=== PATIENT | female | born 1950 | race Caucasian/White ===

== ENCOUNTER → 2017-07-19 | Outpatient (CLI) | payer OTHER ==
[~2017-07-19] MED LIST: CHOL400C7 PO; CYCL10TA6 PO; ERGO500037 PO; IBUP1CAP9 PO; LOSA50TA6 PO; OXYC7.5T78 PO; SIMV20TA2 PO; SIMV40TA4 PO; TURM1CAP4 PO
[2017-07-19 12:47] LABS: ESTIMATED AVERAGE GLUCOSE 105 mg/dl; HA1C FLAG Normal (Normal)
[2017-07-19 12:53] LABS: CHOLESTEROL/HDL RATIO 3.5
== END | disposition home or self-care (01) ==
LOC: C.LABBFT 07:47
PROVIDERS: ATTEND Internal Medicine
DX: I12.9 Hypertensive chronic kidney disease with stage 1 through stage 4 chronic kidney disease, or unspecified chronic kidney disease (principal); N18.9 Chronic kidney disease, unspecified; E78.00 Pure hypercholesterolemia, unspecified; R73.9 Hyperglycemia, unspecified; E55.9 Vitamin D deficiency, unspecified

== ENCOUNTER → 2017-08-19 | Day surgery (SDC) | payer OTHER ==
[2017-08-07 15:42] VITALS: Ht 165.1 cm; Wt 125.0 kg
[~2017-08-19] VITALS: Ht 165.1 cm; Wt 125.0 kg
[~2017-08-19] MED LIST changes: -CHOL400C7 PO; -CYCL10TA6 PO; -IBUP1CAP9 PO; +LIDOCAINE HCL 2% 2 ML VIAL (20MG/ML) ONE; -OXYC7.5T78 PO; +PROPOFOL IV EMULSION 10 MG/ML 20 ML VIAL IV ONE; -SIMV20TA2 PO
[2017-08-19 14:31] VITALS: TEMP 36.8
--- NOTE | 2017-08-19 14:34 | Endo History and Physical ---
History & Physical Date of Service: Aug 19, 2017. Chief Complaint: Screening Referring Physician: Len Biggs History of Present Illness 67 yo CF who presents for screening colonoscopy. Past Medical History High Cholesterol, Hypertension, Kidney Disease Past Surgical History Hx Cardiac Surgery: No Hx Internal Defibrillator: No Hx Pacemaker: No Hx Abdominal Surgery: Yes (OMERO BSO, X2, ADRIANO) Hx of Implantable Prosthesis: No Hx Post-Op Nausea and Vomiting: No Hx Cancer Surgery: No Hx Thoracic Surgery: No Hx Orthopedic: No Hx Urinary Tract Surgery: Yes (LITHOTRIPSY AND URETAL STENT) Family History Colon CA Social History Smoking Status: Never Smoker Hx Substance Use: No Hx Alcohol Use: No Allergies Coded Allergies: No Known Allergies (Verified , 08/07/17) Current Medications Reported Home Medications Medications Dose Route/Sig Max Daily Dose Days Date Category Turmeric (Turmeric (Curcuma Longa)) 500 Mg Cap 1 Cap PO DAILY 08/07/17 Reported Vitamin D 95785 Unit (Ergocalciferol) 50,000 Unit Cap 50,000 Unit PO WK 08/07/17 Reported Zocor (Simvastatin) 40 Mg Tab 40 Mg PO HS 08/07/17 Reported Cozaar (Losartan Potassium) 50 Mg Tab 50 Mg PO HS 08/01/13 Reported Vital Signs Weight (Kilograms): 125 Height (Feet): 5 Height (Inches): 5 Physical Exam General Appearance: WD/WN, no apparent distress Respiratory/Chest: Auscultation: breath sounds normal Cardiovascular: Heart Auscultation: RRR Abdomen: Bowel Sounds: normal Inspection & Palpation: soft, non-distended, no tenderness, guarding & rebound Assessment and Plan Assessment: 67 yo CF who presents for screening colonoscopy. Plan: Proceed with colonoscopy.
--- NOTE | 2017-08-19 15:17 | Discharge Instructions ---
Endoscopy Patient Instructions Date / Procedure(s) Performed Aug 19, 2017. Colonoscopy Allergy Information Coded Allergies: No Known Allergies (Verified , 08/07/17) Discharge Date / Findings Aug 19, 2017. Internal hemorrhoids Medication Instructions OK to resume all medications today as prescribed Reported Home Medications Medications Dose Route/Sig Max Daily Dose Days Date Category Turmeric (Turmeric (Curcuma Longa)) 500 Mg Cap 1 Cap PO DAILY 08/07/17 Reported Vitamin D 64203 Unit (Ergocalciferol) 50,000 Unit Cap 50,000 Unit PO WK 08/07/17 Reported Zocor (Simvastatin) 40 Mg Tab 40 Mg PO HS 08/07/17 Reported Cozaar (Losartan Potassium) 50 Mg Tab 50 Mg PO HS 08/01/13 Reported Provider Instructions Activity Restrictions - No exercising or heavy lifting for 24 hours. - Do not drink alcohol the day of the procedure. - Do not drive a car or operate machinery until the day after the procedure. - Do not make any important decisions or sign important papers in 24 hours after the procedure. Following Day: - Return to full activity which may include returning to work/school. Diet Start your diet with liquids and light foods (jello, soup, juice, toast). Then eat your usual diet if not nauseated. Treatment For Common After Affects For mild abdominal pain, bloating, or excessive gas: - Rest - Eat lightly - Lie on right side Follow-Up Information Follow-up with Len Biggs as scheduled Anesthesia Information What You Should Know You have had a procedure that required some medicine to reduce anxiety and discomfort. This treatment is called moderate sedation. After receiving the treatment, you may be sleepy, but you will be able to breathe on your own. The effects of the treatment may last for several hours. Follow these instructions along with Activity/Diet recommendations noted above: * Do NOT do anything where dizziness or clumsiness would be dangerous. * Rest quietly at home today, then you can be up and about tomorrow. * Have a responsible person stay with you the rest of today. * You may have had an I.V. today. If so, you may take the dressing off later today. Recommendations Call your doctor if: * Trouble breathing * Continuous vomiting for more than 24 hours * Temperature above 101 degrees * Severe abdominal pain or bloating * Pain not relieved by pain medicine ordered * There is increased drainage or redness from any incision * A large amount of rectal bleeding greater than 2-3 tablespoons. (If you had a polyp/s removed or have hemorrhoids, a small amount of blood - from the rectum is to be expected.) * You have any unanswered questions or concerns. IN THE EVENT OF A SERIOUS EMERGENCY, GO TO THE NEAREST EMERGENCY ROOM Your discharge instructions were prepared by provider Zen Carmichael. Patient Instructions Signature Page Elizabet Hankins Patient (or Guardian) Signature/Date: I have read and understand the instructions given to me by my caregivers. Caregiver/RN/Doctor Signature/Date: The above-named patient and/or guardian has received patient instructions on this date. + Original Patient Signature Page (only) stays with chart. Please make copy for patient.
--- NOTE | 2017-08-19 15:22 | GI REPORT ---
Procedure Date: 08/19/2017 2:42 PM Procedure: Colonoscopy Indications: Screening for colorectal malignant neoplasm Medicines: Monitored Anesthesia Care Complications: No immediate complications. Estimated Blood Loss: Estimated blood loss: none. Procedure: Pre-Anesthesia Assessment: - Prior to the procedure, a History and Physical was performed, and patient medications and allergies were reviewed. The patient's tolerance of previous anesthesia was also reviewed. The risks and benefits of the procedure and the sedation options and risks were discussed with the patient. All questions were answered, and informed consent was obtained. Prior Anticoagulants: The patient has taken no previous anticoagulant or antiplatelet agents. ASA Grade Assessment: III - A patient with severe systemic disease. After reviewing the risks and benefits, the patient was deemed in satisfactory condition to undergo the procedure. After I obtained informed consent, the scope was passed under direct vision. Throughout the procedure, the patient's blood pressure, pulse, and oxygen saturations were monitored continuously. The Scope was introduced through the anus and advanced to the cecum, identified by appendiceal orifice and ileocecal valve. The colonoscopy was performed without difficulty. The patient tolerated the procedure well. The quality of the bowel preparation was good. The ileocecal valve, appendiceal orifice, and rectum were photographed. Findings: Non-bleeding internal hemorrhoids were found during retroflexion. The hemorrhoids were small. The exam was otherwise without abnormality. Impression: - Non-bleeding internal hemorrhoids. - The examination was otherwise normal. - No specimens collected. Recommendation: - Resume previous diet. - Continue present medications. - Repeat colonoscopy in 10 years for surveillance. - Return to primary care physician as previously scheduled. Zen Carmichael, DO 08/19/2017 3:21:48 PM This report has been signed electronically. Note Initiated On: 08/19/2017 2:42 PM I attest to the content of the Intraoperative Record and orders documented therein, exceptions below
[2017-08-19 15:42] VITALS: BP 129/76; PULSE 63; O2SAT 96
--- NOTE | 2017-08-19 15:59 | Anesthesiology Progress Note ---
Anesthesia Post Op Note Date & Time Aug 19, 2017 at 15:59 Vital Signs Pain Intensity: 0 Vital Signs Past 12 Hours Date Time Temp Pulse Resp B/P (MAP) Pulse Ox O2 Delivery O2 Flow Rate FiO2 08/19/17 15:42 63 16 129/76 (93) 96 Room Air 08/19/17 15:27 73 16 119/81 (94) 97 Room Air 08/19/17 15:12 81 16 123/65 (84) 92 Room Air 08/19/17 14:31 36.8 90 22 160/110 (127) 95 Room Air Notes Mental Status: alert / awake / arousable, participated in evaluation Pt Amnestic to Procedure: Yes Nausea / Vomiting: adequately controlled Pain: adequately controlled Airway Patency, RR, SpO2: stable & adequate BP & HR: stable & adequate Hydration State: stable & adequate Anesthetic Complications: no major complications apparent
== END | disposition home or self-care (01) ==
LOC: C.GI 14:11
PROVIDERS: ATTEND Internal Medicine
DX: Z12.11 Encounter for screening for malignant neoplasm of colon (principal); K64.8 Other hemorrhoids; E78.00 Pure hypercholesterolemia, unspecified; I10 Essential (primary) hypertension; N18.9 Chronic kidney disease, unspecified; E78.5 Hyperlipidemia, unspecified; M19.90 Unspecified osteoarthritis, unspecified site; Z87.442 Personal history of urinary calculi; Z90.710 Acquired absence of both cervix and uterus; E66.01 Morbid (severe) obesity due to excess calories; Z80.0 Family history of malignant neoplasm of digestive organs; Z90.49 Acquired absence of other specified parts of digestive tract

== ENCOUNTER 2022-05-16 10:00 | Observation (INO) ==
--- NOTE | 2022-04-16 14:39 | PAT Medication Instructions ---
Medication Instructions Date of Service April 16, 2022 Home Medications Medication Instructions Recorded simvastatin 40 mg tablet 40 mg PO HS #90 tab 09/05/21 losartan 50 mg tablet 50 mg PO DAILY #90 tab 12/12/21 cholecalciferol (vitamin D3) 50 mcg (2,000 unit) capsule 4,000 units PO DAILY simvastatin 40 mg tablet 40 mg PO HS losartan 50 mg tablet 50 mg PO DAILY DO NOT take the morning of surgery cholecalciferol (vitamin D3) 50 mcg (2,000 unit) capsule 4,000 units PO DAILY losartan 50 mg tablet 50 mg PO DAILY Take evening before surgery simvastatin 40 mg tablet 40 mg PO HS Other Notes If you have any questions please call us at [phone] or [phone] or [phone] or [phone]
--- NOTE | 2022-04-20 08:34 | Anesthesiology Consultation ---
Date of Service April 20, 2022 Assessment & Plan (1) Encounter for pre-operative examination: COVID screening: Per assessment on 04/20: No known COVID-19 positive contacts or current COVID-19 related symptoms. Travel screen negative. Patient vaccinated. Surgeon arranging preop COVID testing (scheduled 05/11 JAY Doyle d/t the ). Awaiting results. Chart Review Chart Review: Acceptable Risk for Surgery and Patient seen in Pre Admission Testing Teaching & Discussion Pre-Anesthesia Teaching/Discussion Notes: Instructed NPO after midnight before surgery,except medications with 15 cc of water. Medication instructions provided according to the PAT guidelines. History Surgery Operation Date: 05/16/22 09:35 Proposed Procedures p Left Total Knee Arthroplasty - Joseph Degroot MD Height/Weight Height: 5 ft 5 in Weight: 131.5 kg Allergies Allergy/AdvReac Type Severity Reaction Status Date / Time No Known Allergies Allergy Unknown Verified 04/16/22 12:30 Medications Home Medications Medication Instructions Recorded Confirmed Last Taken cholecalciferol (vitamin D3) 50 4,000 units PO DAILY cap 06/12/19 04/16/22 Unknown mcg (2,000 unit) capsule simvastatin 40 mg tablet 40 mg PO HS #90 tab 09/05/21 04/16/22 Unknown losartan 50 mg tablet 50 mg PO DAILY #90 tab 12/12/21 04/16/22 Unknown Past Medical History Medical History History of kidney stones x2 Hypercholesterolemia Hypertension Lumbar disc disease Morbid obesity Sleep apnea No device Exercise / Class Metabolic Activity III < 4 Walking/Shop/Light housework (Cane PRN (no CP, no SOB with daily activities)) Past Family History Family History Unknown Hypertension Breast cancer Heart disease Aunt Breast cancer Mother Heart disease Stroke syndrome Colorectal cancer Father Heart disease Denies family history of Ovarian cancer Prostate cancer Past Surgical History Surgical History History of section History of cystoscopy With insertion of urethral stent History of total abdominal hysterectomy and bilateral salpingo-oophorectomy Hx of bilateral breast reduction surgery Nausea and vomiting after administration of anesthetic agent Pt reports scopolamine patch was very effective S/P cholecystectomy S/P colonoscopy Past Anesthesia History No Hx of Anesthesia Complications (except PONV) and No Family Hx of Anesthesia Complications History of PONV No Hx of Motion Sickness and History of PONV (Pt reports scopolamine patch was very effective ) Social History Smoking Status: Never smoker Do You Dip or Chew Tobacco: No Hx Alcohol Use: No Hx Substance Use: No substance use type: does not use Review of Systems Patient denies chest pain, shortness of breath, fever, chills, cough, wheezing, palpitations. Physical Exam Vital Signs VITALS BP 119/78 P 72 TEMP 98.2 SP02 95%RA RESP 16 PHYSICAL Full cervical extension range of motion. Full TMJ range of motion. TMD 3 finger breaths Mallampati Score 2 Dentition: intact Lungs: clear throughout to auscultation Cardiac: regular rate and rhythm, no murmurs noted Spine: normal Carotid arteries: negative bruit Extremities: no edema Thick neck Lab Results Anesthesia Preop Results Results Anesthesia Widget: WBC 5.45 K/uL (4.8-10.8) 04/20/22 Hgb 16.8 g/dL (12.0-16.0) H 04/20/22 Hct 49.7 % (37-47) H 04/20/22 Plt 221 K/uL (130-400) 04/20/22 Na 141 mmol/L (136-145) 04/20/22 K 4.9 mmol/L (3.5-5.1) 04/20/22 Cl 106 mmol/L (98-107) 04/20/22 CO2 31 mmol/L (21-32) 04/20/22 BUN 20 mg/dl (6-23) 04/20/22 Creat 0.76 mg/dl (0.6-1.2) 04/20/22 Glucose Level 106 mg/dl (70-99(Fasting)) H 04/20/22 PT 9.9 Seconds (9.0-12.0) 04/20/22 PTT 24.8 Seconds (21.0-31.0) 04/20/22 INR 0.9 (0.9-1.1) 04/20/22 HA1c 5.5 % (4.5-5.6) 04/20/22 Urine Color Yellow 04/20/22 Urine Appearance Clear (Clear) 04/20/22 Urine pH 5.0 (4.5-7.5) 04/20/22 Urine Specific [place] 1.019 (1.000-1.030) 04/20/22 Urine Protein Negative (Negative) 04/20/22 Urine Glucose (UA) Negative (Negative) 04/20/22 Urine Ketones Negative (Negative) 04/20/22 Urine Blood Trace (Negative) H 04/20/22 Urine Nitrite Negative (Negative) 04/20/22 Urine Bilirubin Negative (Negative) 04/20/22 Urine Urobilinogen Negative (Negative) 04/20/22 Urine Leukocyte Esterase 1+ (Negative) H 04/20/22 Urine WBC (Auto) 5-10 /hpf (0-5) H 04/20/22 Urine RBC (Auto) 5-10 /hpf (0-4) H 04/20/22 Urine Hyaline Casts (Auto) 1-5 /lpf (0-5) 04/20/22 Urine Epithelial Cells (Auto) >30 /lpf (0-5) H 04/20/22 Urine Bacteria (Auto) Negative (Negative) 04/20/22 Blood Type O Positive 04/20/22 Antibody Screen NEGATIVE 04/20/22 Testing Electrocardiogram Date: 12/13/21 Sinus rhythm at 74 bpm. Low voltage QRS in precordial leads. Chest X-Ray Date: 04/20/22 FINDINGS: PA and lateral chest radiographs are compared to study dated 08/03/2013 and correlated with chest CT dated 12/28/2009. The heart is top normal for projection noting atherosclerotic calcification of the thoracic aorta. The lungs and pleural spaces are clear. There is no pneumothorax. The skeletal structures are osteopenic. The bony thorax appears intact. Degenerative change i s noted in the thoracic spine. Cholecystectomy clips are seen in the right upper quadrant. IMPRESSION: No active disease in the chest. Stress Test Date: 01/09/19 No evidence of inducible ischemia at workload achieved. Poor exercise tolerance. No significant valvular disease. 4.8 METS. 90% MPHR.
--- NOTE | 2022-05-15 19:00 | History & Physical Report ---
Date of Service May 15, 2022 Assessment & Plan (1) Primary osteoarthritis of left knee: Plan: Treatment options discussed with the patient. She has failed conservative measures and would like to proceed with knee replacement. Risks, benefits and alternatives to surgery including but not limited to infection, DVT, pain, stiffness, need for revision surgery, damage to blood vessels, damage to nerves, PE, , were discussed with the patient and they wish to proceed. Plan on left total knee arthroplasty at [facility] on 05/16/[address] Degroot. Plan on Xarelto post op for DVT prophylaxis. Outpatient PT vs HHPT. All questions answered. F/u post op. History of Present Illness Chief Complaint: Left knee pain Primary Care Provider: Len Biggs MD 72 yo female with PMHx significant for HTN, high cholesterol, morbid obesity, FABIANA who presents with ongoing left knee pain. Pain interfering with her daily activities. She has failed conservative measures. she would like to proceed with knee replacement. Patient denies headaches, sweats, fevers, chills, double vision, blurred vision, cough, sore throat, dysphagia, chest pain, sob, wheezing, n/v/d/c, numbness, tingling, fatigue, urinary symptoms, mood disorders. ROS positive for left knee pain and stiffness. Allergies Allergy/AdvReac Type Severity Reaction Status Date / Time No Known Allergies Allergy Unknown Verified 04/23/22 10:08 Home Medications Medication Instructions Recorded Confirmed Type cholecalciferol (vitamin D3) 50 4,000 units PO DAILY cap 06/12/19 04/23/22 History mcg (2,000 unit) capsule simvastatin 40 mg tablet 40 mg PO HS #90 tab 09/05/21 04/23/22 Rx losartan 50 mg tablet 50 mg PO DAILY #90 tab 12/12/21 04/23/22 Rx lorazepam 1 mg tablet 1 mg PO ONCE PRN tab 04/23/22 04/23/22 History Past Med/Surg History Medical History History of kidney stones x2 Hypercholesterolemia Hypertension Lumbar disc disease Morbid obesity Sleep apnea No device Surgical History History of section History of cystoscopy With insertion of urethral stent History of total abdominal hysterectomy and bilateral salpingo-oophorectomy Hx of bilateral breast reduction surgery Nausea and vomiting after administration of anesthetic agent Pt reports scopolamine patch was very effective S/P cholecystectomy S/P colonoscopy Family History Unknown Hypertension Breast cancer Heart disease Aunt Breast cancer Mother Heart disease Stroke syndrome Colorectal cancer Father Heart disease Denies family history of Ovarian cancer Prostate cancer Social History Smoking Status: Never smoker Second Hand Exposure: No; Hx Alcohol Use: No Hx Substance Use: No Preferred Language: Greenlandic Communication Ability: Effective Hearing Ability: Normal Senior Sales Operations Manager Required: No Beliefs That Will Affect Care: None marital status: Current Living Situation: Spouse current occupational status: employed Feels Safe at Home: Yes Dental Care, Regularly: Yes Physical Activity Frequency: Does not Exercise Seatbelt Use: always Assistive Devices: Cane and Walker Review of Systems All systems reviewed & are unremarkable except as noted in HPI & below Physical Exam Constitutional: well developed and well nourished; no acute distress Eyes: PERRL, conjunctivae normal, anicteric sclerae ENMT: external ear and nose normal, oropharynx normal Neck: trachea midline, no thyromegaly Respiratory: normal respiratory effort, lungs clear to auscultation Cardiovascular: RRR, no murmur, no edema Musculoskeletal: Left knee: Varus alignment. Tenderness medial joint line. Moderate crepitation. Painful ROM 0-125 degrees. Stable to valgus and varus stress. Skin: no rashes, warm and dry Neurologic: patellar DTR's 2+ bilat, sensation intact Psychiatric: A+Ox3, euthymic affect Results & Data ([facility]) Diagnostic Findings Left knee: Endstage osteoarthritis left knee bone on bone medial compartment and patellofemoral compartment. There is periarticular osteophyte formation.
[~2022-05-16 10:00] MED LIST changes: +ACETAMINOPHEN 500 MG TAB PO SCH; +BUPIVACAINE 0.5 % 5 MG/1 ML PF 10ML VIAL ONE; +CeleBREX 200 MG CAP PO SCH; -ERGO500037 PO; +FAMOTIDINE 20 MG TAB PO SCH; +GABAPENTIN 300 MG CAP PO SCH; -LIDOCAINE HCL 2% 2 ML VIAL (20MG/ML) ONE; -LOSA50TA6 PO; +LR 500ML BOLUS, THEN 15ML/HR IV SCH; +METOCLOPRAMIDE HCL 10 MG TABLET PO SCH; -PROPOFOL IV EMULSION 10 MG/ML 20 ML VIAL IV ONE; +ROPIVACAINE 0.5% 5 MG/ML 30 ML VIAL ONE; +ROPIVACAINE 0.5% HCL/PF 150 MG, BUPIVACAINE 0.75% MPF 20 ML, EPINEPHrine 30MG/30ML (OR ... INSTIL SCH; -SIMV40TA4 PO; +TRANEXAMIC ACID 1,000 MG **IV Intra-op IV SCH; +TRANEXAMIC ACID 1,000 MG **IV Pre-op IV SCH; -TURM1CAP4 PO; +dexAMETHasone 4 MG TAB PO SCH
[2022-05-16] MEDS ORDERED: fentaNYL citrate 100 MCG/2 ML VIAL IV PRN (13:01)
[2022-05-16] MEDS ORDERED: ATROPINE SULFATE 0.1 MG/ML 10ML SYR IV PRN (13:01)
[2022-05-16] MEDS ORDERED: ONDANSETRON INJ 2 MG/ML 2 ML VIAL IV PRN ×2 (13:01→17:49)
[2022-05-16] MEDS ORDERED: ePHEDrine sulfate 50 MG/ML AMP IV PRN (13:01)
[2022-05-16] MEDS ORDERED: fentaNYL citrate 100 MCG/2 ML VIAL ONE (13:25)
[2022-05-16] MEDS ORDERED: MIDAZOLAM HCL 1 MG/ML 2ML VIAL ONE (13:25)
--- NOTE | 2022-05-16 13:40 | History & Physical Bridge Note ---
Date of Service May 16, 2022 History & Physical Bridge Note I have examined the patient, reviewed the History & Physical and in the interval since the performance of the History & Physical I have noted the following changes of clinical significance: no changes noted
[2022-05-16] MEDS ORDERED: ONDANSETRON INJ 2 MG/ML 2 ML VIAL ONE (14:06)
[2022-05-16] MEDS ORDERED: PROPOFOL IV EMULSION 10 MG/ML 20 ML VIAL IV ONE (14:06)
[2022-05-16] MEDS ORDERED: LIDOCAINE 2% 2 ML VIAL/AMP(20MG/ML) INFIL ONE (14:06)
--- NOTE | 2022-05-16 15:40 | Operative Report ---
Post Operative Report Pre & Post Diagnosis Operation Date: 05/16/22 11:55 Pre-Op Diagnosis: Left Knee Osteoarthritis, morbid obesity BMI 48.5 Post-Op Diagnosis: Left Knee Osteoarthritis, more obesity BMI 48.5 I identified the patient and participated in the time-out.: Yes Procedure Operation Date: 05/16/22 11:55 Actual Procedures p Left Total Knee Arthroplasty(Left), application superficial wound VAC, increased difficulty morbid obesity BMI 48.5- Joseph Degroot MD Surgeon Joseph Degroot MD Otr Owner Operator Richar CONNELLY Estimated Blood Loss 5 Findings Consistent with Post-Op Diagnosis Specimens Bone cuts Drains 2 Hemovac Anesthesia Type MAC Spinal Regional Complications none Disposition Disposition: Recovery Room Indications 72-year female with severe bilateral knee osteoarthritis failed conservative management. Radiographs demonstrate severe patellofemoral medial compartment osteoarthritis [id number] medial compartment patellofemoral joint bilateral. Patient has varus knees. Description of Procedure Patient was taken to the operating room placed supine on the operating table and anesthetized under spinal MAC regional block anesthesia. Exam under anesthesia demonstrated very obese abdomen with a pannus and obese left upper thigh and knee. Knee was moderately obese. Range of motion was 5 through 120 degrees. No pseudolaxity no instability. Pneumatic tourniquet was placed about the obese thigh of the left lower extremity. The left lower extremity was prepped and draped in usual sterile fashion. The leg was elevated exsanguinated with an Esmarch bandage and the pneumatic tourniquet was raised to 350 mm mercury. An anterior incision was made across the left knee. The skin was incised longitud inally subcutaneous flaps were elevated. 1 cutting through the fat over the prepatellar bursa area there was significant edema in the fat and soft tissues in that area. An incision was then made through the medial retinaculum extending up into the mid third of the quadriceps tendon and extended down to the medial tibial tubercle. Intra-articular findings demonstrated [id number] medial compartment and patellofemoral joint with eburnated bone varus knee, chronic lateral meniscus tear.several loose bodies which were removed. The knee was exposed by excising the infrapatellar fat pad, excising the meniscal remnants and anterior cruciate ligament. Any inflamed synovial tissue was resected. The fat pad over the anterior femur was resected for placement of the component in that area. The lateral synovial bands were release. The femur was exposed. The custom femoral cutting block was pinned in position. The distal femoral cutting block was applied. The distal femoral cut was made with the oscillating saw. The size 8, 4-in-1 cutting block was placed. The anterior and posterior chamfer cuts were made. The knee was extended and a subperiosteal peel lateral release was performed around the patella. The patella width was measured and width was reproduced using freehand cut technique. The 35 millimeter symmetrical patella was used. 3 drill holes are made for the pegs. The tibia was exposed. A custom tibial cutting block was positioned and drill holes were made for the cutting guide. Cutting guide was placed and the proximal cut was made with the oscillating saw. All osteophytes were resected. The lamina car inspector was used to assess ligamentous balance and the ligaments were balanced in extension and flexion. The tibia was reexposed and measured for a size E tibial component. This was externally rotated in line with the tibial tubercle and the fixation pins were drilled. The proximal tibia was fashioned with the drill and punch. The size 8 CR femoral trial was inserted. The trial MC inserts were used. The 10 mm insert gave balanced ligaments through full range of motion. The patella tracked centrally. the trials were removed. The orthomix anesthetic cocktail was injected per protocol. The knee was then copiously irrigated with pulsatile lavage saline solution. The final components were cemented with Refobacin bone cement. The final components were a standard left CR persona Mikaela Biomet femoral component, E left tibia with a 14 x 30 cemented stem, 10 mm MC left tibial polyethylene insert, 35 symmetrical polyethylene patella. After the cement cured with the knee in full extension the Betadine soak was used per protocol. The knee joint was copiously irrigated with pulsatile lavage saline solution . 2 drains were brought out laterally and connected to a Hemovac. The quadriceps tendon and medial retinaculum were closed with interrupted [id number] #1 Vicryl sutures. The knee was taken through a full range of motion and repair was secure. Range of motion 0 through 130 degrees. The subcutaneous tissues were closed with 2-0 Vicryl sutures and skin was closed with brian. A mick and Acticoat superficial wound VAC was applied and the patient tolerated the procedure well. Richar CONNELLY my physician workforce development assistant, participated as expanded duty dental assistant and was integral part in all aspects of the procedure. He assisted in soft tissue retraction, instrument management ,leg positioning, the closure, application of superficial wound VAC and will participate in the postoperative care of the patient. Was increased difficulty due to patient's obesity which increased time of procedure by 15 to 20 minutes. I attest to the content of the Intraoperative Record and any orders documented therein. Any exceptions are noted below.
--- NOTE | 2022-05-16 16:52 | Anesthesiology Progress Note ---
Date of Service May 16, 2022 Anesthesia Post Procedure Vital Signs Vital Signs: Temp Pulse Resp BP Pulse Ox 05/16/22 10:28 36.8 C 87 20 133/88 96 Pain Intensity Bilateral Knee: Pain Intensity: 0 Transfer of Care Handoff Completed per policy Notes Mental Status: alert / awake / arousable Patient Amnestic to Procedure: Yes Nausea / Vomiting: adequately controlled Pain: adequately controlled Airway Patency, RR, SpO2: stable & adequate BP & HR: stable & adequate Hydration State: stable & adequate Neuraxial Anesthesia: was administered and sensory block is resolving Anesthetic Complications: no major complications apparent
[2022-05-16] MEDS ORDERED: DROPERIDOL 5 MG/2 ML VIAL IV STA (16:59)
--- NOTE | 2022-05-16 17:37 | XRay Report ---
XR knee LT 1 or 2V routine CLINICAL HISTORY: Postoperative evaluation. COMPARISON: None FINDINGS: Alignment of the total left knee arthroplasty is anatomic. There is no periprosthetic frac ture or unexpected radiopaque foreign body. There are skin brian. Surgical drains are noted. IMPRESSION: Expected findings following total left knee arthroplasty. ACT 112: Negative or not required by law. Electronically signed by: Oseas Cottrell M.D. 05/16/2022 5:36 PM
[2022-05-16] MEDS ORDERED: oxyCODONE HCL IR 5 MG TAB (IMMEDIATE RELEASE) PO PRN (17:49)
[2022-05-16] MEDS ORDERED: bisacodyL 10 MG SUPP PR PRN (17:49)
[2022-05-16] MEDS ORDERED: NALOXONE HCL 0.4 MG/1 ML VIAL/CARP IV PRN (17:49)
[2022-05-16] MEDS ORDERED: METOCLOPRAMIDE HCL INJ 5 MG/ML 2 ML VIAL IV PRN (17:49)
[2022-05-16] MEDS ORDERED: MAGNESIUM HYDROXIDE SUSP 30 ML UDC PO PRN (17:49)
[2022-05-16] MEDS ORDERED: HYDROmorphone INJ 0.5 MG/0.5 ML SYR IV PRN (17:49)
[2022-05-16] MEDS: SODIUM CHLORIDE 0.9% 1000ML 1,000 ML IV SCH (18:51)
--- NOTE | 2022-05-16 19:28 | Hospitalist Consultation ---
Date of Consultation May 16, 2022 Assessment & Plan (1) Primary osteoarthritis of left knee: - S/p TKA today, 05/16 without any complications EBL 5cc. [address]. POD #0. - Defer ABX/IVF/pain management/DVT PPx to primary team. - Has rescue Narcan ordered as needed. - CBC and BMP in AM. (2) Hypertension: - Continue losartan 50 mg daily pending adequate, stable renal function on a.m. BMP. (3) Hypercholesterolemia: - Continue simvastatin 40 mg beginning tonight. (4) Vitamin D deficiency: - Continue vitamin D3 supplementation. (5) Sleep apnea: - History of, intolerant to CPAP. - Observation status on MedSurg unit per primary team. - VTE PPx per primary team. - Full code. Supervising Physician Co-Signing Physician Notes Attending addendum: I have physically seen this patient, have supervised the REY's activities, and agree with the H&P unless as otherwise noted. Assessment and Plan: Status post TKA- Seen postoperatively is medically stable Treatment per primary service Hypertension- Continue losartan Assess renal function with the a.m. BMP hyperlipidemia- Continue simvastatin 40 mg at bedtime Sleep apnea- History of intolerance to CPAP Continuous pulse oximetry, with target pulse ox 92% with supplemental oxygen as needed Other notations as noted We will follow during hospital stay History of Present Illness Reason for Consultation: Medication management Requesting Physician: Joseph Degroot MD Attending Physician: Joseph Degroot MD History of Present Illness Elizabet Hankins is a 72-year-old female with a past medical history significant for hypertension, hyperlipidemia, FABIANA (refuses CPAP), and vitamin D deficiency who was admitted today, 05/16 for left TKA with Dr. Degroot. Hospitalist group was consulted for post-operative medication management. Today, she is POD#0 and feels well. Denies fever/chills, chest pain, palpitation, shortness of breath, cough, abdominal pain, nausea, vomiting, weakness, numbness or tingling. Allergies Allergy/AdvReac Type Severity Reaction Status Date / Time No Known Allergies Allergy Unknown Verified 05/16/22 10:26 Home Medications Medication Instructions Recorded Confirmed Type cholecalciferol (vitamin D3) 50 4,000 units PO DAILY cap 06/12/19 05/16/22 History mcg (2,000 unit) capsule simvastatin 40 mg tablet 40 mg PO HS #90 tab 09/05/21 05/16/22 Rx losartan 50 mg tablet 50 mg PO DAILY #90 tab 12/12/21 05/16/22 Rx Patient History Medical History History of kidney stones x2 Hypercholesterolemia Hypertension Lumbar disc disease Morbid obesity Sleep apnea No device Surgical History History of section History of cystoscopy With insertion of urethral stent History of total abdominal hysterectomy and bilateral salpingo-oophorectomy Hx of bilateral breast reduction surgery Nausea and vomiting after administration of anesthetic agent Pt reports scopolamine patch was very effective S/P cholecystectomy S/P colonoscopy Family History Unknown Hypertension Breast cancer Heart disease Aunt Breast cancer Mother Heart disease Stroke syndrome Colorectal cancer Father Heart disease Denies family history of Ovarian cancer Prostate cancer Social History Smoking Status: Never smoker Second Hand Exposure: No; Do You Dip or Chew Tobacco: No; Tobacco Cessation Education Requested by Patient: No Hx Alcohol Use: No Hx Substance Use: No Preferred Language: Hungarian Communication Ability: Effective 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 Beliefs That Will Affect Care: None marital status: Current Living Situation: Spouse current occupational status: employed Other Information That Helps Us Care for You: No Feels Safe at Home: Yes Safety Concerns: Feels Safe At This Time Dental Care, Regularly: Yes Physical Activity Frequency: Does not Exercise Seatbelt Use: always Assistive Devices: Walker Review of Systems Review of Systems: Constitutional: No fever/chills, weakness, fatigue, myalgias, anorexia, night sweats Eyes: No diplopia, no worsening or blurred vision ENT: normal hearing, no trouble swallowing Respiratory: No cough, sputum, dyspnea at rest or on exertion Cardiovascular: No chest pain, tightness or palpitations Abdomen: No pain, nausea, vomiting, diarrhea or constipation : Denies dysuria, hematuria, increased urgency/frequency, urinary retention Musculoskeletal: No joint pain, calf pain, swelling Neurologic: No weakness, numbness/tingling, or balance problems Psychiatric: No anxiety or depression Skin: No rash or itch Physical Exam Physical Exam: General: awake, alert, no apparent distress Head: Normocephalic, atraumatic ENT: PERRL, EOMI, no pharyngeal exudate, mucous membranes moist Chest: Clear to auscultation, on room air, no adventitious breath sounds Cardiac: Regular rate and rhythm, no murmur, no JVD, normal peripheral pulses, good capillary refill Abdominal: NABS x 4 quadrants, soft, nontender to palpation, no rebound, guarding or tenderness Extremities: Normal inspection, no peripheral edema or erythema, calfs nontender to palpation Psych: Normal mood and affect Neuro: AAO x 3, strength intact bilaterally and rated 5/5, no motor deficits, speech is clear, no peripheral sensory deficits Skin: no rash or erythema Results & Data Results & Data ([facility]) Vital Signs (Past 12 Hours) Vital Signs Temp Pulse Pulse Resp BP BP Pulse Ox 05/16/22 18:38 60 20 116/75 95 05/16/22 18:16 61 16 113/74 92 05/16/22 17:45 36.5 C 62 16 105/71 94 05/16/22 17:20 36.7 C 57 L 12 107/60 96 05/16/22 17:10 36.7 C 65 20 109/78 94 05/16/22 17:00 74 19 119/64 92 05/16/22 16:50 55 L 18 111/93 95 05/16/22 16:40 58 L 22 103/70 97 05/16/22 16:34 36.0 C L 82 19 108/90 96 05/16/22 10:28 36.8 C 87 20 133/88 96 Diagnostic Findings Knee X-Ray 05/16/22 16:31 XR knee LT 1 or 2V routine CLINICAL HISTORY: Postoperative evaluation. COMPARISON: None FINDINGS: Alignment of the total left knee arthroplasty is anatomic. There is no periprosthetic fracture or unexpected radiopaque foreign body. There are skin brian. Surgical drains are noted. IMPRESSION: Expected findings following total left knee arthroplasty. ACT 112: Negative or not required by law. Electronically signed by: Oseas Cottrell M.D. 05/16/2022 5:36 PM PG Care Time/CCT Total # of Minutes Spent Total Time Spent with Patient: Total time spent is greater than 50% in coordination of care (as documented) at patient's floor/unit and/or counseling patient: Coding Level of Care Code 87005 Office/OBS Consult Lvl 1 Diagnoses Primary osteoarthritis of left knee M17.12 Hypertension I10 Hypercholesterolemia E78.00 Vitamin D deficiency E55.9 Sleep apnea G47.30
[2022-05-16] MEDS: ACETAMINOPHEN 500 MG TAB PO SCH (21:21)
[2022-05-16] MEDS: SENNA 8.6 MG TAB PO SCH (21:21)
[2022-05-16] MEDS: ceFAZolin 2000MG 2,000 MG/15 ML SYR IV SCH (21:21)
[2022-05-16] MEDS: SIMVASTATIN 40 MG TAB PO SCH (21:22)
[2022-05-16] MEDS: DOCUSATE SODIUM 100 MG CAP PO SCH (21:22)
--- NOTE | 2022-05-17 03:58 | Communication Note ---
Date of Service: May 17, 2022 soft blood pressure 92/57. Extending duration of iv fluids from 6am to 6pm. CBC this AM
[2022-05-17] MEDS: SODIUM CHLORIDE 0.9% 1000ML 1,000 ML IV SCH ×2 (04:08→14:04)
[2022-05-17] MEDS: ceFAZolin 2000MG 2,000 MG/15 ML SYR IV SCH (05:54)
[2022-05-17] MEDS: ACETAMINOPHEN 500 MG TAB PO SCH ×3 (05:54→21:13)
[2022-05-17 06:09] LABS: Hematocrit (blood only) 41.2 % (34.1-44.9); Hemoglobin 13.6 g/dl (12.0-16.0); Mean Corpuscular Hemoglobin 29.4 pg (25.0-34.0); Mean Platelet Volume 11.3 fL (9.4-12.3); Platelet Count 201 K/uL (130-400); RDW Coefficient of Variation 12.3 % (11.5-14.5); RDW Standard Deviation 39.9 fL (36.4-46.3); Red Blood Count 4.63 M/uL (3.93-5.22); White Blood Count 9.35 K/ul (4.8-10.8)
[2022-05-17 06:37] LABS: BUN Creatinine Ratio 27.7 (10-20); Calcium 8.4 mg/dl (8.5-10.1); Creatinine Clr Calc Pharmacy 109.1 ml/min; Est GFR (African American) 103.5 ml/min; Est GFR (Non-African American) 89.3 ml/min; Potassium 4.5 mmol/L (3.5-5.1)
--- NOTE | 2022-05-17 07:11 | Orthopedic Progress Note ---
Date of Service May 17, 2022 Assessment & Plan (1) Primary osteoarthritis of left knee: Plan: Postop day #1 left total knee arthroplasty -Pain management as written -PT/OT -DVT prophylaxis: SCD, teds, Xarelto 10 mg daily -A.m. labs hemoglobin stable at 13.6 -Discharge planning: Patient has 12 steps to get to the bedroom and bathroom in her house. It will be difficult for patient to go home. Patient [facility]. Case management consult has been placed. Admission and Anticipated Discharge Date Admission Date: May 16, 2022 Subjective Patient is doing well this morning. Her pain is controlled. She is sitting in her bedside chair. She has no current complaints. Her blood pressures have been running a little bit soft but otherwise feels well. Denies chest pain, shortness of breath, dizziness, lightheadedness, nausea/vomiting/diarrhea. Review of Systems 2 Review of Systems: All systems reviewed & are unremarkable except as noted in Subjective Physical Exam Physical Exam: Left knee: Dressing is clean, dry, intact. Toes are mobile with good dorsiflexion. No calf tenderness. Nelida and Hemovac in place. Distally neurovascular status and sensation intact. Constitutional: WD/WN, vitals as above Results & Data ([facility]) Vital Signs (Past 12 Hours) Vital Signs Temp Pulse Resp BP BP Pulse Ox 05/17/22 05:56 36.4 C L 62 14 99/63 L 93 05/17/22 03:32 36.7 C 61 18 92/57 L 96 05/16/22 23:35 36.4 C L 56 L 18 86/52 L 93 05/16/22 20:33 36.5 C 64 18 118/67 92 05/16/22 19:45 36.3 C L 67 18 116/78 91 Laboratory Results H & H 05/17/22 Range/Units 05:38 Hgb 13.6 (12.0-16.0) g/dl Hct 41.2 (34.1-44.9) %
[2022-05-17] MEDS: MULTIVITAMIN TAB PO SCH (08:32)
[2022-05-17] MEDS: RIVAROXABAN 10 MG TABLET PO SCH (08:32)
[2022-05-17] MEDS: DOCUSATE SODIUM 100 MG CAP PO SCH ×2 (08:33→21:13)
[2022-05-17] MEDS ORDERED: CHOLECALCIFEROL PO SCH (09:00)
[2022-05-17] MEDS ORDERED: LOSARTAN POTASSIUM 50 MG TAB PO SCH ×2 (09:00→17:00)
--- NOTE | 2022-05-17 10:11 | Hospitalist Progress Note ---
Date of Service May 17, 2022 Assessment & Plan (1) Primary osteoarthritis of left knee: Plan: - S/p L TKA today, POD#1 - Pain control as written by orthopedics - DVT ppx advised for a minimum of 14 days. Drug choice/dose/duration at discretion of orthopedics. - PT/OT - Incentive spirometer q1h wa for atelectasis/pna prevention - for discharge planning (2) Hypertension: Plan: - Losartan resumed but ideally should be held on POD#1 d/t refractory hypotension in the setting of spinal anesthesia - Monitor BP today - Fluids are still running since surgery, can be stopped if BP acceptable (3) Hypercholesterolemia: Plan: - Continue simvastatin 40 mg beginning tonight. (4) Vitamin D deficiency: Plan: - Continue vitamin D3 supplementation. (5) Sleep apnea: Plan: - History of, intolerant to CPAP. Plan: No further recommendations. She is suitable for discharge from medicine standpoint, therefore will sign off. Please feel free to notify if any acute needs should arise while she remains in house. Thank you for allowing us to participate in the care of your patient. Plan to be d/w Dr. Rajeev Jimenez. Admission and Anticipated Discharge Date Admission Date: May 16, 2022 Subjective Patient was seen on daily rounds this morning. She is resting comfortably in bed and offers no complaints. Reports knee pain is adequately controlled, denies chest pain, dyspnea, n/v/d, f/c, headache, or gu symptoms. She has not yet had a BM but is passing flatus. No issues with voiding. CM looking into rehab for her upon d/c. Review of Systems Review of Systems: All systems reviewed and are unremarkable except as noted in HPI and below. Denies fever, chills, fatigue, headache, nasal congestion, sore throat, cough, chest pain, shortness of breath, palpitations, orthopnea, PND, abdominal pain, n/v/d, constipation, dysuria, hematuria, frequency, back pain, joint pain or swelling, easy bruising or bleeding, skin lesions or rashes. Physical Exam Physical Exam: GENERAL: 72 yo morbidly obese WF. NAD. LUNGS: Clear to auscultation bilaterally. No w/r/r CARDIOVASCULAR: Regular rate and rhythm. ABDOMEN: Soft, non-tender and non-distended. BS normoactive x 4 quad. EXTREMITIES: L knee is dressed/wrapped in graciela. Hemovac visualized. No edema. Non-tender. Peripheral pulses +2/4. Neg kev's sign. NEUROLOGIC: A&O x3. PSYCHIATRIC: Cooperative. Appropriate mood and affect. SKIN: Warm, dry, intact. No rashes or lesions. Results & Data Results & Data ([facility]) Vital Signs (Past 12 Hours) Vital Signs Temp Pulse Resp BP BP Pulse Ox 05/17/22 05:56 36.4 C L 62 14 99/63 L 93 05/17/22 03:32 36.7 C 61 18 92/57 L 96 05/16/22 23:35 36.4 C L 56 L 18 86/52 L 93 Laboratory Results 05/17/22 05:38 05/17/22 05:38 PG Care Time/CCT Total # of Minutes Spent Total Time Spent with Patient: Total time spent is greater than 50% in coordination of care (as documented) at patient's floor/unit and/or counseling patient: Coding Level of Care Code 94981 Subseq Obs Care Lvl 2 Diagnoses Primary osteoarthritis of left knee M17.12 Hypertension I10 Hypercholesterolemia E78.00 Vitamin D deficiency E55.9 Sleep apnea G47.30
[2022-05-17] MEDS ORDERED: CHOLECALCIFEROL 1,000 UNITS 25 MCG TAB PO SCH (17:00)
[2022-05-17] MEDS: SENNA 8.6 MG TAB PO SCH (21:12)
[2022-05-17] MEDS: SIMVASTATIN 40 MG TAB PO SCH (21:12)
[2022-05-18] MEDS: ACETAMINOPHEN 500 MG TAB PO SCH ×2 (06:11→14:43)
[2022-05-18] MEDS: MULTIVITAMIN TAB PO SCH (08:03)
[2022-05-18] MEDS: RIVAROXABAN 10 MG TABLET PO SCH (08:03)
[2022-05-18] MEDS: DOCUSATE SODIUM 100 MG CAP PO SCH (08:03)
--- NOTE | 2022-05-18 10:21 | Orthopedic Progress Note ---
Date of Service May 18, 2022 Assessment & Plan (1) Primary osteoarthritis of left knee: Plan: Postop day #2 left total knee arthroplasty -Pain management as written -PT/OT -DVT prophylaxis: SCD, teds, Xarelto 10 mg daily -Discharge planning: Case management has put in authorization for [facility] and is waiting to hear back from them. Possible need for SNF if denied. Admission and Anticipated Discharge Date Admission Date: May 16, 2022 Subjective Postop day 2 Patient ambulating in her room independently. Pain is controlled. Denies shortness of breath, chest pain, lightheadedness. States that her operative leg feels a little bit heavier today but is otherwise doing well. Physical Exam Physical Exam: Dressings are clean, dry, and intact. Calves are soft nontender. Neurovascular intact. Toes are mobile. Results & Data ([facility]) Vital Signs (Past 12 Hours) Vital Signs Temp Pulse Resp BP Pulse Ox 05/18/22 06:35 36.6 C 59 L 18 100/64 95 05/17/22 22:44 36.5 C 61 17 102/64 95
--- NOTE | 2022-05-18 21:25 | Discharge Summary ---
Date of Service May 18, 2022 Admission HPI Per Admitting Provider 72 yo female with PMHx significant for HTN, high cholesterol, morbid obesity, FABIANA who presents with ongoing left knee pain. Pain interfering with her daily activities. She has failed conservative measures. she would like to proceed with knee replacement. Patient denies headaches, sweats, fevers, chills, double vision, blurred vision, cough, sore throat, dysphagia, chest pain, sob, wheezing, n/v/d/c, numbness, tingling, fatigue, urinary symptoms, mood disorders. ROS positive for left knee pain and stiffness. Admission Exam Per Admitting Provider Constitutional: well developed and well nourished; no acute distress Eyes: PERRL, conjunctivae normal, anicteric sclerae ENMT: external ear and nose normal, oropharynx normal Neck: trachea midline, no thyromegaly Respiratory: normal respiratory effort, lungs clear to auscultation Cardiovascular: RRR, no murmur, no edema Musculoskeletal: Left knee: Varus alignment. Tenderness medial joint line. Moderate crepitation. Painful ROM 0-125 degrees. Stable to valgus and varus stress. Skin: no rashes, warm and dry Neurologic: patellar DTR's 2+ bilat, sensation intact Psychiatric: A+Ox3, euthymic affect Principal Diagnosis Left knee osteoarthritis Discharge Exam Dressings are clean, dry, and intact. Calves are soft nontender. Neurovascular intact. Toes are mobile. Constitutional WD/WN, vitals as above Discharge Data Allergies Allergy/AdvReac Type Severity Reaction Status Date / Time No Known Allergies Allergy Unknown Verified 05/16/22 10:26 Consultations 05/10/22 13:42 Consult Hospitalist Routine Procedures Performed Operation Date: 05/16/22 11:55 Actual Procedures p Left Total Knee Arthroplasty(Left) - Joseph Degroot MD Ordered Studies 05/16/22 05:00 US - OR guided needle placemen Routine Hospital Course (1) Primary osteoarthritis of left knee: Postop day #1 left total knee arthroplasty -Pain management as written -PT/OT -DVT prophylaxis: SCD, teds, Xarelto 10 mg daily -A.m. labs hemoglobin stable at 13.6 -Discharge planning: Patient has 12 steps to get to the bedroom and bathroom in her house. It will be difficult for patient to go home. Patient [facility]. Case management consult has been placed Postop day #2 left total knee arthroplasty -Pain management as written -PT/OT -DVT prophylaxis: SCD, teds, Xarelto 10 mg daily -Discharge planning: Case management [facility] and is waiting to hear back from them. Possible need for SNF if denied. Patient progressed well with PT, independent and safe to return home. Patient was denied inpatient rehab and does not want to go to a SNF. Prefers discharge home with HH. Patient discharged on POD#2. Lab Results 07/06/22 07// 07/06/01 Range/Units 10:15 05:38 05:38 WBC 9.35 (4.8-10.8) K/ul RBC 4.63 (3.93-5.22) M/uL Hgb 13.6 (12.0-16.0) g/dl Hct 41.2 (34.1-44.9) % MCV 89.0 (80.0-100.0) fL MCH 29.4 (25.0-34.0) pg MCHC 33.0 (32.0-36.0) g/dL RDW Std Deviation 39.9 (36.4-46.3) fL RDW Coeff of Jonel 12.3 (11.5-14.5) % Plt Count 201 (130-400) K/uL MPV 11.3 (9.4-12.3) fL Sodium 140 (136-145) mmol/L Potassium 4.5 (3.5-5.1) mmol/L Chloride 110 H (98-107) mmol/L Carbon Dioxide 27 (21-32) mmol/L Anion Gap 3 (3-11) BUN 18 (6-23) mg/dl Creatinine 0.65 (0.6-1.2) mg/dl Est Cr Clr Drug Dosing 109.1 ml/min Est GFR ( Amer) 103.5 ml/min Est GFR (Non-Af Amer) 89.3 ml/min BUN/Creatinine Ratio 27.7 H (10-20) Glucose 141 H (70-99(Fasting)) mg/dl Calcium 8.4 L (8.5-10.1) mg/dl SARS-CoV-2, RNA, NAAT NEGATIVE (NEGATIVE) Total Time Total Time Spent Total Time Spent (In Minutes): 20 Discharge Plan Discharge Items Patient Disposition: Home - Home Health Services Reason For Visit: Left Knee Osteoarthritis Discharge Diagnosis: Left Knee Osteoarthritis Activity: Per Instructions section Weightbearing: Left weightbearing Weightbearing Comment: as tolerated with walker Non-emergency contact: Surgeon Call non-emergency contact if: you have any medication questions, your pain is not controlled, your pain is concerning for you, you have a fever, your temperature is above 101, your wound has increased redness and your wound has increased drainage Follow-up/Referrals: Len Biggs MD [Primary Care Provider] - 05/28/22 11:30 am (Follow up appointment with Ekta Diaz PA-C) Joseph Degroot MD [Surgeon] - (Follow up with Dr. Degroot in 2 weeks from the day of your surgery for your first post operative visit. Please call for appointment if one has not been made for you. ) Diet: Regular Addtl Attending Provider Instructions: ACTIVITY RECOMMENDATIONS: SELF CARE INSTRUCTIONS AFTER TOTAL KNEE REPLACEMENT A. You may need to continue a physical therapy program after discharge from the hospital. There are several options available to you. Your doctor will assist you in selecting the best one for you. 1. An out-patient facility 2 to 3 times a week for therapy or home therapy. 2. Continue working on all exercises taught to you in the hospital. Your goals should be to increase bending of your knee to 90 degrees and beyond and to fully straighten your knee. B. You may progress at your own pace from walking with a walker or crutches to a cane; then to no assistive devices. C. Make walking a part of your daily routine. Be up as much as comfortable with rest periods throughout the day. Rest with leg elevation is very important. Use the ice wrap frequently for the first 3-4 weeks. D. There are no restrictions on activities. You may ride in a car, shop, participate in fulfillment mail clerk and all social activities. E. Wear the long elastic stockings (RONALD hose) 20 hours a day for 2 weeks after surgery. They can be removed several times a day for laundering and for a bath. F. You may shower, no tub baths until cleared by your doctor. SPECIAL CARE INSTRUCTIONS: VERY IMPORTANT TO READ AND REVIEW A. There are a few signs you need to watch for after you are home. Call [facility] if you notice any of the followin. Increased severe knee pain. Some pain is expected especially when you exercise. 2. Increased swelling in your leg or knee; pain or swelling of the calf muscle in either lower leg. 3. Any fluid drainage from the incision. 4. Shortness of breath or chest pain. B. Please call [facility] at if you have any concerns or questions about your operation or recovery. The doctor or his nurse will return your call promptly. C. You must take antibiotics before dental work, bladder, bowel or other surgery. Your doctor will provide you with a permanent care to carry describing this precaution. IMPORTANT: * REMEMBER TO TAKE XARELTO 10MG DAILY FOR 4 WEEKS UNLESS OTHERWISE DIRECTED. THIS IS YOUR BLOOD THINNER. * HIGH RISK PATIENTS MAY BE PRESCRIBED A STRONGER BLOOD THINNER. THIS WILL BE PROVIDED AT DISCHARGE. * CALL IF INCREASED PAIN, REDNESS, DRAINAGE OR FEVER GREATER THAT 101. * WEAR RONALD HOSE 20 HOURS PER DAY FOR 2 WEEKS. This is a large suction dressing covering your incision. This will help pull any excess drainage from the wound and allow your incision to heal properly. You may shower with this if you can keep the unit outside of the shower. If any bleeding or leakage is noted please call your doctor's office. This will remain on your incision for 7 days and then should be removed. This can be done yourself or by the home nursing staff if applicable. The entire unit is disposable once removed. Once removed, keep incision clean and dry. If redness or drainage is noted, please call your surgeon. IF INCISION IS LEAKING THROUGH DRESSING, CALL THE OFFICE . FOLLOW UP VISIT: If appointment is not already scheduled: Please call [facility] to make a follow-up appointment for 2 weeks after your surgery at . Stand-Alone Forms: KILTR, Smoking Cessation Medications and DC Order Prescriptions: New Xarelto 10 mg Tablet 10 mg PO DAILY 30 Days Qty: 30 RF: 0 acetaminophen [Tylenol Extra Strength] 500 mg Tablet 1,000 mg PO Q8 14 Days Qty: 84 RF: 0 polyethylene glycol 3350 [Miralax] 17 gram powder in packet 17 g PO DAILY PRN (Reason: constipation) Qty: 5 RF: 0 oxycodone 5 mg Tablet 5 mg PO Q4H MDD 6 PRN (Reason: pain) Qty: 30 RF: 0 Continued simvastatin 40 mg tablet 40 mg PO HS Qty: 90 RF: 3 losartan 50 mg tablet 50 mg PO DAILY Qty: 90 RF: 3 cholecalciferol (vitamin D3) 2,000 unit capsule 4,000 units PO DAILY RF: 0 Discharge Orders: Discharge Order (Routine); Ordered 05/18/22 Ordered By: Demetrius Weiss/Other Patient Handouts: Knee Replace Recovery, Knee Replacement Total Dc Admission Data Admit Date/Time: 05/16/22 16:31 Attending Provider: Joseph Degroot Admit Provider: Joseph Degroot Primary Care Provider: Len Biggs Other Providers: Ari Jimenez ; [facility] Other Interventions: Discharge Summary Assessment (RN) Last Done: 05/18/22 14:34
== END 2022-05-18 15:17 | disposition home or self-care (01) ==
LOC: ASU 10:00 → 3E 10:00

== ENCOUNTER 2023-01-09 05:12 | Observation (INO) ==
--- NOTE | 2023-01-04 09:37 | Anesthesiology Consultation ---
Date of Service January 04, 2023 Assessment & Plan (1) Encounter for pre-operative examination: Plan - Outpatient joint assessment: Patient is currently scheduled for inpatient pathway. If re-evaluated pending system levels during current pandemic/surgeon requests outpatient pathway, patient is NOT acceptable candidate for outpatient joint program from anesthesia standpoint. - COVID screening: Per preprint analyst on 01/04/2023: Travel screen negative, no known COVID-19 positive contacts or current COVID-19 related symptoms in past 2 weeks. To surgeon's discretion if preop COVID testing is needed. Chart Review Chart Review: Acceptable Risk for Surgery and Patient NOT seen in Pre Admission Testing History Surgery Operation Date: 01/09/23 09:45 Proposed Procedures p Right Total Knee Arthroplasty - Joseph Degroot MD Height/Weight Height: 5 ft 5 in Weight: 129.274 kg Allergies Allergy/AdvReac Type Severity Reaction Status Date / Time No Known Allergies Allergy Unknown Verified 01/04/23 08:58 Medications Home Medications Medication Instructions Recorded Confirmed Last Taken cholecalciferol (vitamin D3) 50 2,000 units PO HS 06/12/19 01/04/23 05/15/22 18:00 mcg (2,000 unit) capsule gabapentin 100 mg capsule See Rx Instructions PO DAILY PRN 08/01/22 01/04/23 Unknown neuropathy #60 caps simvastatin 40 mg tablet 40 mg PO HS #90 tabs 09/04/22 01/04/23 Unknown losartan 50 mg tablet 50 mg PO HS 01/04/23 01/04/23 Unknown Past Medical History Medical History (Updated 01/04/23 @ 09:32 by Antonella Tristan PA-C) History of kidney stones Hypercholesterolemia Hypertension Lumbar disc disease Morbid obesity Prediabetes Sleep apnea No device Past Family History Family History Unknown Heart disease Breast cancer Hypertension Aunt Breast cancer Mother Heart disease Stroke syndrome Colorectal cancer Father Heart disease Brother Cancer Sister Healthy adult Other No family history of adverse response to anesthesia Denies family history of Ovarian cancer Prostate cancer Past Surgical History Surgical History (Updated 01/04/23 @ 09:32 by Antonella Tristan PA-C) History of section X 2 History of cystoscopy With insertion of urethral stent History of total abdominal hysterectomy and bilateral salpingo-oophorectomy History of total knee replacement LEFT 7/6/22 SAB L4-L5 1 attempt + PNB. Hx of bilateral breast reduction surgery Nausea and vomiting after administration of anesthetic agent Pt reports scopolamine patch was very effective S/P cholecystectomy S/P colonoscopy Social History Smoking Status: Never smoker Hx Alcohol Use: Yes alcohol intake frequency: holidays/special occasions only substance use type: does not use Lab Results Anesthesia Preop Results Results Anesthesia Widget: WBC 5.68 K/ul (4.8-10.8) 12/06/22 Hgb 17.0 g/dl (12.0-16.0) H 12/06/22 Hct 50.7 % (37.0-47.0) H 12/06/22 Plt 199 K/uL (130-400) 12/06/22 Na 141 mmol/L (136-145) 12/06/22 K 4.1 mmol/L (3.5-5.1) 12/06/22 Cl 108 mmol/L (98-107) H 12/06/22 CO2 21 mmol/L (21-32) 12/06/22 BUN 13 mg/dl (6-23) 12/06/22 Creat 0.65 mg/dl (0.6-1.2) 12/06/22 Glucose Level 111 mg/dl (70-99(Fasting)) H 12/06/22 PT 10.3 Seconds (9.0-12.0) 12/06/22 PTT 25.4 Seconds (21.0-31.0) 12/06/22 INR 1.0 (0.9-1.1) 12/06/22 TSH 4.011 uIu/ml (0.300-4.500) 12/06/22 HA1c 5.4 % (4.5-5.6) 12/06/22 Urine Color Dark Yellow 12/06/22 Urine Appearance Cloudy (Clear) A 12/06/22 Urine pH 5.0 (4.5-7.5) 12/06/22 Urine Specific C[place] 1.017 (1.000-1.030) 12/06/22 Urine Protein Trace (Negative) H 12/06/22 Urine Glucose (UA) Negative (Negative) 12/06/22 Urine Ketones Negative (Negative) 12/06/22 Urine Blood 2+ (Negative) H 12/06/22 Urine Nitrite Negative (Negative) 12/06/22 Urine Bilirubin Negative (Negative) 12/06/22 Urine Urobilinogen Negative (Negative) 12/06/22 Urine Leukocyte Esterase 2+ (Negative) H 12/06/22 Urine WBC (Auto) 1-5 /hpf (0-5) 12/06/22 Urine RBC (Auto) 5-10 /hpf (0-4) H 12/06/22 Urine Hyaline Casts (Auto) 1-5 /lpf (0-5) 12/06/22 Urine Epithelial Cells (Auto) >30 /lpf (0-5) H 12/06/22 Urine Bacteria (Auto) 1+ (Negative) H 12/06/22 Urine Yeast Not Reportable 12/06/22 Blood Type O Positive 12/06/22 Antibody Screen NEGATIVE 12/06/22 Testing Laboratory Results Nicholas with surgeon's office made aware of abnormal UA Electrocardiogram Date: 12/13/21 Sinus rhythm, rate 74 bpm Low QRS voltage precordial leads Chest X-Ray Date: 04/20/22 The heart is top normal for projection noting atherosclerotic calcification of the thoracic aorta. The lungs and pleural spaces are clear. There is no pneumothorax. The skeletal structures are osteopenic. The bony thorax appears intact. Degenerative change is noted in the thoracic spine. Cholecystectomy clips are seen in the right upper quadrant. IMPRESSION: No active disease in the chest. Stress Test Date: 01/09/19 Exercise METS 4.8 MPHR 90% Poor exercise tolerance No evidence of inducible ischemia Technically limited study Normal LV systolic function No significant valvular heart disease
--- NOTE | 2023-01-08 09:21 | History & Physical Report ---
Date of Service January 08, 2023 Assessment & Plan (1) Primary osteoarthritis of right knee: Plan: Treatment options discussed with patient. She has failed conservative measures and would like to proceed with surgical intervention. Risks, benefits and alternatives to surgery including but not limited to infection, DVT, pain, stiffness, need for revision surgery, damage to blood vessels, damage to nerves, PE, , were discussed with the patient and they wish to proceed. Plan on right total knee arthroplasty scheduled for [facility] on 01/09/[address] Degroot. Plan on outpatient PT post op. Plan on Xarelto 10mg daily post op for DVT prophylaxis. All questions answered. F/u post op. History of Present Illness Chief Complaint: Right knee pain Primary Care Provider: Len Biggs MD 72 yo female with PMHx significant for HTN, high cholesterol, morbid obesity, FABIANA, previous left TKA who presents with ongoing right knee pain. Pain interfering with her daily activities. She has failed conservative measures. she would like to proceed with knee replacement. Patient denies headaches, sweats, fevers, chills, double vision, blurred vision, cough, sore throat, dysphagia, chest pain, sob, wheezing, n/v/d/c, numbness, tingling, fatigue, urinary symptoms, mood disorders. ROS positive for right knee pain and stiffness. Allergies Allergy/AdvReac Type Severity Reaction Status Date / Time No Known Allergies Allergy Unknown Verified 01/04/23 08:58 Home Medications Medication Instructions Recorded Confirmed Type cholecalciferol (vitamin D3) 50 2,000 units PO HS 06/12/19 01/04/23 History mcg (2,000 unit) capsule gabapentin 100 mg capsule See Rx Instructions PO DAILY PRN 08/01/22 01/04/23 Rx neuropathy #60 caps simvastatin 40 mg tablet 40 mg PO HS #90 tabs 09/04/22 01/04/23 Rx losartan 50 mg tablet 50 mg PO HS 01/04/23 01/04/23 History Past Med/Surg History Medical History (Updated 01/08/23 @ 09:19 by Bear Martinez PA-C) History of kidney stones Hypercholesterolemia Hypertension Lumbar disc disease Morbid obesity Prediabetes Sleep apnea No device Surgical History (Updated 01/04/23 @ 09:32 by Antonella Tristan PA-C) History of section X 2 History of cystoscopy With insertion of urethral stent History of total abdominal hysterectomy and bilateral salpingo-oophorectomy History of total knee replacement LEFT 05/16/22 SAB L4-L5 1 attempt + PNB. Hx of bilateral breast reduction surgery Nausea and vomiting after administration of anesthetic agent Pt reports scopolamine patch was very effective S/P cholecystectomy S/P colonoscopy Family History Unknown Heart disease Breast cancer Hypertension Aunt Breast cancer Mother Heart disease Stroke syndrome Colorectal cancer Father Heart disease Brother Cancer Sister Healthy adult Other No family history of adverse response to anesthesia Denies family history of Ovarian cancer Prostate cancer Social History Smoking Status: Never smoker Second Hand Exposure: Yes (IN THE PAST); Hx Alcohol Use: Yes Preferred Language: Ukrainian Communication Ability: Effective Hearing Ability: Normal Chairman Emeritus Required: No Beliefs That Will Affect Care: None marital status: Current Living Situation: Spouse current occupational status: retired Feels Safe at Home: Yes Childhood Exposure to Second-Hand Smoke: Yes caffeine: No Dental Care, Regularly: Yes Physical Activity Frequency: Does not Exercise Seatbelt Use: always Assistive Devices: Glasses Review of Systems All systems reviewed & are unremarkable except as noted in HPI & below Physical Exam Constitutional: well developed and well nourished; no acute distress Eyes: PERRL, conjunctivae normal, anicteric sclerae ENMT: external ear and nose normal, oropharynx normal Neck: trachea midline, no thyromegaly Respiratory: normal respiratory effort, lungs clear to auscultation Cardiovascular: RRR, no murmur, no edema Musculoskeletal: Right knee: Varus alignment. Tenderness medial joint line. Stable to valgus and varus stress. ROM 0-115 degrees Skin: no rashes, warm and dry Neurologic: patellar DTR's 2+ bilat, sensation intact Psychiatric: A+Ox3, euthymic affect Results & Data ([place]) Diagnostic Findings Right knee radiographs demonstrate endstage osteoarthritis with tricompartmental arthritic changes. Bone on bone medial compartment. Periarticular osteophytes all 3 compartments.
[2023-01-09] MEDS ORDERED: TRANEXAMIC ACID 1,000 MG **IV Intra-op IV SCH (06:00)
[2023-01-09] MEDS ORDERED: ROPIVACAINE 0.5% HCL/PF 150 MG, BUPIVACAINE 0.75% MPF 20 ML, EPINEPHrine 30MG/30ML (OR ... INSTIL SCH (06:00)
[2023-01-09] MEDS ORDERED: GABAPENTIN 300 MG CAP PO SCH (06:00)
[2023-01-09] MEDS ORDERED: ACETAMINOPHEN 500 MG TAB PO SCH (06:00)
[2023-01-09] MEDS ORDERED: FAMOTIDINE 20 MG TAB PO SCH (06:00)
[2023-01-09] MEDS ORDERED: METOCLOPRAMIDE HCL 10 MG TABLET PO SCH (06:00)
[2023-01-09] MEDS ORDERED: LR 500ML BOLUS, THEN 15ML/HR IV SCH (06:00)
[2023-01-09] MEDS ORDERED: dexAMETHasone 4 MG TAB PO SCH (06:00)
[2023-01-09] MEDS ORDERED: TRANEXAMIC ACID 1,000 MG **IV Pre-op IV SCH (06:00)
[2023-01-09] MEDS ORDERED: CeleBREX 200 MG CAP PO SCH (06:00)
[2023-01-09] MEDS ORDERED: ROPIVACAINE 0.5% 5 MG/ML 30 ML VIAL ONE (06:16)
[2023-01-09] MEDS ORDERED: BUPIVACAINE 0.5 % 5 MG/1 ML PF 10ML VIAL ONE (06:16)
[2023-01-09] MEDS ORDERED: SCOPOLAMINE 1 MG TDSY TD ONE ×2 (06:43→06:46)
[2023-01-09] MEDS ORDERED: ePHEDrine sulfate 50 MG/ML AMP IV PRN (06:47)
[2023-01-09] MEDS ORDERED: fentaNYL citrate 100 MCG/2 ML VIAL IV PRN (06:47)
[2023-01-09] MEDS ORDERED: ATROPINE SULFATE 0.1 MG/ML 10ML SYR IV PRN (06:47)
[2023-01-09] MEDS ORDERED: ONDANSETRON INJ 2 MG/ML 2 ML VIAL IV PRN ×2 (06:47→11:42)
[2023-01-09] MEDS ORDERED: ONDANSETRON INJ 2 MG/ML 2 ML VIAL ONE ×2 (06:54→09:25)
[2023-01-09] MEDS ORDERED: PROPOFOL IV EMULSION 10 MG/ML 20 ML VIAL IV ONE ×2 (06:54→09:04)
[2023-01-09] MEDS ORDERED: MIDAZOLAM HCL 1 MG/ML 2ML VIAL ONE (06:54)
[2023-01-09] MEDS ORDERED: fentaNYL citrate 100 MCG/2 ML VIAL ONE (06:54)
[2023-01-09] MEDS ORDERED: ORTHO JOINT ANESTHETIC ONE (06:58)
--- NOTE | 2023-01-09 07:05 | History & Physical Bridge Note ---
Date of Service January 09, 2023 History & Physical Bridge Note I have examined the patient, reviewed the History & Physical and in the interval since the performance of the History & Physical I have noted the following changes of clinical significance: no changes noted
[2023-01-09] MEDS ORDERED: ePHEDrine sulfate 50 MG/ML AMP ONE (07:36)
[2023-01-09] MEDS ORDERED: PHENYLEPHRINE HCL 10 MG/ML VIAL ONE (07:36)
[2023-01-09] MEDS ORDERED: DEXAMETHASONE SOD INJ 4 MG/ML VIAL ONE (08:13)
--- NOTE | 2023-01-09 09:49 | Post Operative Brief Note ---
Immediate Post Op Note v1 Date of Surgery January 09, 2023 Pre & Post Diagnosis Operation Date: 01/09/23 07:15 Pre-Op Diagnosis: Osteoarthritis Right Knee, morbid obesity BMI 49.5 Post-Op Diagnosis: Osteoarthritis Right Knee, morbid obesity BMI 49.5 I identified the patient and participated in the time-out.: Yes Procedure Operation Date: 01/09/23 07:15 Actual Procedures p Right Total Knee Arthroplasty(Right), application superficial wound VAC, increased difficulty more obesity BMI 49.5- Joseph Degroot MD Surgeon Joseph Degroot MD [employer] Richar CONNELLY Estimated Blood Loss 5 Findings Consistent with Post-Op Diagnosis Specimens Bone cuts Drains Hemovac Drain Anesthesia Type MAC Spinal Regional Complications none Disposition Disposition: Recovery Room Overlapping Procedure I was immediately available: during the entire case.
--- NOTE | 2023-01-09 10:00 | Operative Report ---
Post Operative Report Pre & Post Diagnosis Operation Date: 01/09/23 07:15 Pre-Op Diagnosis: Osteoarthritis Right Knee, morbid obesity BMI 49.5 Post-Op Diagnosis: Osteoarthritis Right Knee, morbid obesity BMI 49.5 I identified the patient and participated in the time-out.: Yes Procedure Operation Date: 01/09/23 07:15 Actual Procedures p Right Total Knee Arthroplasty(Right), increased difficulty morbid obesity BMI 49.5, application superficial wound VAC- Joseph Degroot MD Surgeon Joseph Degroot MD Medical Legal Investigator Richar CONNELLY Estimated Blood Loss 5 Findings Consistent with Post-Op Diagnosis Specimens bone cuts Drains 2 Hemovac Anesthesia Type MAC Spinal Regional Complications none Disposition Disposition: Recovery Room Indications 72-year-old female with severe osteoarthritis right knee medial compartment and patellofemoral joint [id number] both compartments with varus knee and morbid obesity and prior successful left knee replacement. Description of Procedure Patient was taken to the operating room placed supine on the operating table and anesthetized under spinal MAC regional block anesthesia. Exam under anesthesia demonstrated morbid obesity with large pannus abdominal fat which overlapped the hip area and obesity the upper thigh extending down to the knee with some pretibial edema. Knee range of motion was 0-100. A pneumatic tourniquet was placed about the obese thigh of the right lower extremity. The right lower extremity was prepped and draped in usual sterile fashion. The leg was elevated exsanguinated with an Esmarch bandage and the pneumatic tourniquet was raised to 350 mm mercury. An anterior incision was made across the right knee. The skin was incised longitudinally subcutaneous flaps were elevated and an incision was made through the medial retinaculum extending up into the mid third of the quadriceps tendon and extended down to the medial tibial tubercle. There was a scarred prepatellar bursa and some of this was resected. Intra-articular findings demonstrated large loose bodies anterior to the tibia and another large loose body attached to the lateral retinaculum and the posterior horn medial meniscus had a large calcified meniscus or loose body there as well. There were tricompartmental osteophytes. There was eburnated bone medial compartment with ridging on the femoral condyle. There was grade 4 patellar osteoarthritis with bone loss on the patella thinning the patella symmetrically with large osteophytes around the patella. There was some small loose bodies in suprapatellar pouch. There was some generalized synovitis.. The knee was exposed by excising the loose bodies and infrapatellar fat pad, excising the meniscal remnants and anterior cruciate ligament. Any inflamed synovial tissue was resected. The fat pad over the anterior femur was resected for placement of the component in that area. The lateral synovial bands were release. The femur was exposed. The custom femoral cutting block was pinned in position. The distal femoral cutting block was applied. The distal femoral cut was made with the oscillating saw. The size 9, 4-in-1 cutting block was placed. The anterior and posterior chamfer cuts were made. The knee was extended and a subperiosteal peel lateral release was performed around the patella. The patella width was measured and width was reproduced using freehand cut technique. The 32 x 8.5 millimeter symmetrical patella was used. 3 drill holes are made for the pegs. The tibia was exposed. A custom tibial cutting block was positioned and drill holes were made for the cutting guide. Cutting guide was placed and the proximal cut was made with the oscillating saw. All osteophytes were resected. The lamina scale agent was used to assess ligamentous balance and the ligaments were balanced in extension and flexion. The tibia was reexposed and measured for a size E tibial component. This was externally ro tated in line with the tibial tubercle and the fixation pins were drilled. The proximal tibia was fashioned with the drill and punch. The size 9 CR femoral trial was inserted. The trial MC inserts were used. The 12 mm insert gave balanced ligaments through full range of motion. The patella tracked centrally. the trials were removed. The orthomix anesthetic cocktail was injected per protocol. The knee was then copiously irrigated with pulsatile lavage saline solution. The final components were cemented with Refobacin bone cement. The final components were Mikaela persona size 9 narrow CR right femoral component, E tibial component with a 14 x 30 mm stem, 12 MC right tibial poly and a 32 x 8.5 symmetrical patella. After the cement cured with the knee in full extension the Betadine soak was used per protocol. The knee joint was copiously irrigated with pulsatile lavage saline solution . 2 drains were brought out laterally and connected to a Hemovac. The quadriceps tendon and medial retinaculum were closed with interrupted [id number] #1 Vicryl sutures. The knee was taken through a full range of motion and repair was secure. The subcutaneous tissues were closed with 2-0 Vicryl sutures and skin was closed with brian. A mick and Acticoat superficial wound VAC was applied and the patient tolerated the procedure well. There was increased level difficulty due to morbid obesity which added 30 minutes to the surgical time. Richar CONNELLY my physician curriculum assistant principal participated as first aid teacher and was an integral part in all aspects of the procedure, he assisted in soft tissue retraction, instrument management ,leg positioning, the closure, application superficial wound VAC and will participate in the postoperative care of the patient. I attest to the content of the Intraoperative Record and any orders documented therein. Any exceptions are noted below.
--- NOTE | 2023-01-09 10:17 | XRay Report ---
XR knee RT 1 or 2V routine CLINICAL HISTORY: Surgical Post Op TECHNIQUE: 2 views of the right knee were obtained. Comparison: Comparison is made to right femur radiograph 04/22/2015 FINDINGS: Patient is status post total knee arthroplasty with expected postsurgical changes including soft tiss ue swelling and subcutaneous emphysema. No periarticular lucency or hardware fracture is seen. IMPRESSION: Expected postoperative appearance status post placement of total knee arthroplasty. ACT 112: Negative or not required by law. Electronically signed by: Dharmesh Larkin M.D. 01/09/2023 10:15 AM
--- NOTE | 2023-01-09 10:28 | Anesthesiology Progress Note ---
Date of Service January 09, 2023 Anesthesia Post Procedure Vital Signs Vital Signs: Temp Pulse Pulse Resp BP Pulse Ox O2 Del Method 01/09/23 10:20 59 L 18 110/71 97 Nasal Cannula 01/09/23 10:10 97.0 F L 62 14 116/70 96 Nasal Cannula 01/09/23 10:00 97.0 F L 61 22 112/70 97 Nasal Cannula 01/09/23 09:53 97.0 F L 60 22 114/71 97 Oxymask 01/09/23 05:35 97.9 F 78 20 153/100 H 93 Room Air O2 Flow Rate 01/09/23 10:20 2 01/09/23 10:10 2 01/09/23 10:00 2 01/09/23 09:53 5 01/09/23 05:35 Transfer of Care Handoff Completed per policy Notes Mental Status: alert / awake / arousable and participated in evaluation Patient Amnestic to Procedure: Yes Nausea / Vomiting: adequately controlled Pain: adequately controlled Airway Patency, RR, SpO2: stable & adequate BP & HR: stable & adequate Hydration State: stable & adequate Neuraxial Anesthesia: was administered and sensory block is resolving Anesthetic Complications: no major complications apparent and Pt Satisfied with anesthetic care
[2023-01-09] MEDS ORDERED: HYDROmorphone INJ 0.5 MG/0.5 ML SYR IV PRN (11:42)
[2023-01-09] MEDS ORDERED: GABAPENTIN 100 MG CAP PO PRN (11:42)
[2023-01-09] MEDS ORDERED: MAGNESIUM HYDROXIDE SUSP 30 ML UDC PO PRN (11:42)
[2023-01-09] MEDS ORDERED: METOCLOPRAMIDE HCL INJ 5 MG/ML 2 ML VIAL IV PRN (11:42)
[2023-01-09] MEDS ORDERED: bisacodyL 10 MG SUPP PR PRN (11:42)
[2023-01-09] MEDS ORDERED: NALOXONE HCL 0.4 MG/1 ML VIAL/CARP IV PRN (11:42)
[2023-01-09] MEDS: SODIUM CHLORIDE 0.9% 1000ML 1,000 ML IV SCH ×2 (11:47→21:51)
[2023-01-09] MEDS ORDERED: CHECK SCOPOLAMINE PATCH PLACEMENT SCH (16:00)
[2023-01-09] MEDS: ACETAMINOPHEN 500 MG TAB PO SCH ×2 (16:40→21:52)
[2023-01-09] MEDS: ceFAZolin 2000MG 2,000 MG/15 ML SYR IV SCH ×2 (16:41→23:32)
[2023-01-09] MEDS: CHOLECALCIFEROL 1,000 UNITS 25 MCG TAB PO SCH (21:52)
[2023-01-09] MEDS: DOCUSATE SODIUM 100 MG CAP PO SCH (21:53)
[2023-01-09] MEDS: SENNA 8.6 MG TAB PO SCH (21:53)
[2023-01-10] MEDS: ACETAMINOPHEN 500 MG TAB PO SCH ×3 (05:04→21:21)
[2023-01-10 06:22] LABS: Hematocrit (blood only) 41.3 % (37.0-47.0); Hemoglobin 13.7 g/dl (12.0-16.0); Mean Corpuscular Hemoglobin 29.9 pg (25.0-34.0); Mean Corpuscular Hgb Conc 33.2 g/dL (32.0-36.0); Mean Corpuscular Volume 90.2 fL (80.0-100.0); Mean Platelet Volume 11.3 fL (9.4-12.4); Platelet Count 214 K/uL (130-400); RDW Coefficient of Variation 12.7 % (11.5-14.5); RDW Standard Deviation 42.1 fL (36.4-46.3); Red Blood Count 4.58 M/uL (4.20-5.40); White Blood Count 10.23 K/ul (4.8-10.8)
[2023-01-10 06:58] LABS: Anion Gap 4 (3-11); BUN Creatinine Ratio 27.3 (10-20); Blood Urea Nitrogen 21 mg/dl (6-23); Calcium 8.8 mg/dl (8.5-10.1); Carbon Dioxide 26 mmol/L (21-32); Chloride 109 mmol/L (98-107); Creatinine Clr Calc Pharmacy 93.3 ml/min; Est GFR (Non-African American) 77.7 ml/min; Glucose 148 mg/dl (70-99(Fasting)); Sodium 139 mmol/L (136-145)
--- NOTE | 2023-01-10 08:08 | Orthopedic Progress Note ---
Date of Service January 10, 2023 Assessment & Plan (1) Primary osteoarthritis of right knee: Plan: Postop day #1 right total knee arthroplasty. -PT/OT -Pain management as written -AM labs: Hemoglobin 13.7 from 17 preop. Acute blood loss anemia due to surgical loss and dilutional. -DVT prophylaxis: SCDs, teds, Xarelto 10 mg daily -Discharge planning: Plan on discharge home with outpatient therapy. Possible discharge home today depending on how therapy goes and her Hemovac output. If not, likely discharge tomorrow. Admission and Anticipated Discharge Date Admission Date: January 09, 2023 Subjective Patient is postop day 1 right total knee. She is doing well this morning. Minimal pain. No current complaints. Denies chest pain, shortness of breath, nausea/vomiting/diarrhea, headaches or dizziness. Review of Systems Review of Systems: All systems reviewed & are unremarkable except as noted in Subjective Physical Exam Physical Exam: Right knee: Dressing is clean, dry, intact. Good dorsiflexion. No calf tenderness. Patient able to extend her knee. Distally neurovascular status and sensation grossly intact. Constitutional: WD/WN, vitals as above Results & Data ([facility]) Vital Signs (Past 12 Hours) Vital Signs Temp Pulse Pulse Resp BP BP Pulse Ox 01/10/23 07:26 36.9 C 79 18 102/60 01/10/23 03:40 36.7 C 62 20 93/60 L 96 01/09/23 23:00 36.6 C 54 L 16 104/62 94 O2 Del Method 01/10/23 07:26 Room Air 01/10/23 03:40 Room Air 01/09/23 23:00 Room Air Laboratory Results Lab Results 01/09/23 01/10/23 01/10/23 Range/Units 05:23 05:28 05:28 WBC 10.23 (4.8-10.8) K/ul RBC 4.58 (4.20-5.40) M/uL Hgb 13.7 (12.0-16.0) g/dl Hct 41.3 (37.0-47.0) % MCV 90.2 (80.0-100.0) fL MCH 29.9 (25.0-34.0) pg MCHC 33.2 (32.0-36.0) g/dL RDW Std Deviation 42.1 (36.4-46.3) fL RDW Coeff of Jonel 12.7 (11.5-14.5) % Plt Count 214 (130-400) K/uL MPV 11.3 (9.4-12.4) fL Sodium 139 (136-145) mmol/L Potassium TNP Chloride 109 H (98-107) mmol/L Carbon Dioxide 26 (21-32) mmol/L Anion Gap 4 (3-11) BUN 21 (6-23) mg/dl Creatinine 0.77 (0.6-1.2) mg/dl Est Cr Clr Drug Dosing 93.3 ml/min Est GFR ( Amer) 90.0 ml/min Est GFR (Non-Af Amer) 77.7 ml/min BUN/Creatinine Ratio 27.3 H (10-20) Glucose 148 H (70-99(Fasting)) mg/dl Calcium 8.8 (8.5-10.1) mg/dl SARS-CoV-2, RNA, NAAT NEGATIVE (NEGATIVE) 01/10/23 Range/Units 07:17 WBC (4.8-10.8) K/ul RBC (4.20-5.40) M/uL Hgb (12.0-16.0) g/dl Hct (37.0-47.0) % MCV (80.0-100.0) fL MCH (25.0-34.0) pg MCHC (32.0-36.0) g/dL RDW Std Deviation (36.4-46.3) fL RDW Coeff of Jonel (11.5-14.5) % Plt Count (130-400) K/uL MPV (9.4-12.4) fL Sodium (136-145) mmol/L Potassium 4.4 Chloride (98-107) mmol/L Carbon Dioxide (21-32) mmol/L Anion Gap (3-11) BUN (6-23) mg/dl Creatinine (0.6-1.2) mg/dl Est Cr Clr Drug Dosing ml/min Est GFR ( Amer) ml/min Est GFR (Non-Af Amer) ml/min BUN/Creatinine Ratio (10-20) Glucose (70-99(Fasting)) mg/dl Calcium (8.5-10.1) mg/dl SARS-CoV-2, RNA, NAAT (NEGATIVE)
[2023-01-10] MEDS: oxyCODONE HCL IR 5 MG TAB (IMMEDIATE RELEASE) PO PRN ×3 (08:41→19:41)
[2023-01-10] MEDS: RIVAROXABAN 10 MG TABLET PO SCH (08:41)
[2023-01-10] MEDS: DOCUSATE SODIUM 100 MG CAP PO SCH ×2 (08:41→20:11)
[2023-01-10] MEDS: MULTIVITAMIN TAB PO SCH (08:41)
--- NOTE | 2023-01-10 10:33 | Hospitalist Consultation ---
Date of Consultation January 10, 2023 Assessment & Plan (1) S/P total knee arthroplasty: DOing well CBC stable, Vitals stable continue pain control, bowel regimen PT/OT evals post-op care as per Ortho DVT proph with RONALD Gambino Xarelto 10mg daily Drain in place-follow output -follow CBC and BMP in AM (2) Hypertension: BPs controlled to low normal With some blood loss in wound vac today--> will hold losartan for tonight Can restart losartan on discharge if BPs improve and renal function remains stable (3) Hypercholesterolemia: continue statin (4) Prediabetes: hgbA1C 5.4%-normal no need for insulin or accuchecks here (5) Obesity: BMI 49 needs weight loss (6) Sleep apnea: declines CPAP may need O2 overnight (7) Vitamin D deficiency: continue supplement Plan DVT porph-RONALD Mary, SCDs Dispo-plan for home with outpt PT likely tomorrow Hospitalist service will sign off at this time. Please feel free to contact us if any new or acute issues arise. History of Present Illness Reason for Consultation: POst-op medical management Requesting Physician: Dr. Degroot Attending Physician: Joseph Degroot MD History of Present Illness This pt is a 72 yo female with a h/o HTN, HL, FABIANA (declines CPAP), prediabetes, nephrolithiasis who is here for right TKA. SHe reports doing very well. Went up and down the stairs today with PT.Denies CP,SOB,lightheadedness, nausea. She moved her bowels yesterday. Is passing flatus today, voiding without difficulty. Was going to go home today but she reports the Ortho PA came by this afternoon and was concerned about her drain output. Allergies Allergy/AdvReac Type Severity Reaction Status Date / Time No Known Allergies Allergy Unknown Verified 01/09/23 05:33 Home Medications Medication Instructions Recorded Confirmed Type cholecalciferol (vitamin D3) 50 2,000 units PO HS 06/12/19 01/09/23 History mcg (2,000 unit) capsule gabapentin 100 mg capsule See Rx Instructions PO DAILY PRN 08/01/22 01/04/23 Rx neuropathy #60 caps simvastatin 40 mg tablet 40 mg PO HS #90 tabs 09/04/22 01/09/23 Rx losartan 50 mg tablet 50 mg PO HS 01/04/23 01/09/23 History acetaminophen 500 mg tablet 1,000 mg PO Q8 #60 tabs 01/10/23 Rx (Tylenol Extra Strength) oxycodone 5 mg tablet 5 - 10 mg PO .Q4h-6h PRN pain #30 01/10/23 Rx tabs rivaroxaban 10 mg tablet (Xarelto) 10 mg PO DAILY #30 tabs 01/10/23 Rx Patient History Medical History History of kidney stones Hypercholesterolemia Hypertension Lumbar disc disease Morbid obesity Prediabetes Sleep apnea No device Surgical History History of section X 2 History of cystoscopy With insertion of urethral stent History of total abdominal hysterectomy and bilateral salpingo-oophorectomy History of total knee replacement LEFT 05/16/22 SAB L4-L5 1 attempt + PNB. Hx of bilateral breast reduction surgery Nausea and vomiting after administration of anesthetic agent Pt reports scopolamine patch was very effective S/P cholecystectomy S/P colonoscopy Family History Unknown Heart disease Breast cancer Hypertension Aunt Breast cancer Mother Heart disease Stroke syndrome Colorectal cancer Father Heart disease Brother Cancer Sister Healthy adult Other No family history of adverse response to anesthesia Denies family history of Ovarian cancer Prostate cancer Social History Smoking Status: Never smoker Second Hand Exposure: Yes (IN THE PAST); Hx Alcohol Use: Yes Preferred Language: Turkish Communication Ability: Effective Hearing Ability: Normal Coach Wirer Required: No Beliefs That Will Affect Care: None marital status: Current Living Situation: Spouse current occupational status: retired Feels Safe at Home: Yes Childhood Exposure to Second-Hand Smoke: Yes caffeine: No Dental Care, Regularly: Yes Physical Activity Frequency: Does not Exercise Seatbelt Use: always Assistive Devices: Bedside Commode, Cane and Walker Review of Systems Review of Systems: All systems reviewed & are unremarkable except as noted in HPI & below Physical Exam Constitutional: WD/WN, vitals as above Neck: trachea midline, no thyromegaly Respiratory: normal respiratory effort, lungs clear to auscultation Cardiovascular: RRR, no murmur, no edema Chest (Breasts): Chest: normal inspection of chest Gastrointestinal (Abdomen): normal bowel sounds, soft, nontender, no hepatosplenomegaly Musculoskeletal: Extremities: + extremities abnormal to inspection (Right knee in dressing and YARA wrap,bloody drainage in wound vac), no cyanosis and no clubbing Skin: no rashes, warm and dry Neurologic: moves all extremities and awake; no focal motor deficits Psychiatric: A+Ox3, euthymic affect Lymphatic: no lymphedema Results & Data Results & Data ([facility]) Vital Signs (Past 12 Hours) Vital Signs Temp Pulse Pulse Resp BP BP Pulse Ox 01/10/23 07:26 36.9 C 79 18 102/60 01/10/23 03:40 36.7 C 62 20 93/60 L 96 01/09/23 23:00 36.6 C 54 L 16 104/62 94 O2 Del Method 01/10/23 07:26 Room Air 01/10/23 03:40 Room Air 01/09/23 23:00 Room Air Laboratory Results CBC, BMP reviewed PG Care Time/CCT Total # of Minutes Spent Total Time Spent with Patient: Total time spent is greater than 50% in coordination of care (as documented) at patient's floor/unit and/or counseling patient: Coding Level of Care Code 42603 IN/OBS CONSULT LVL 3,45M Diagnoses S/P total knee arthroplasty Z96.659 Hypertension I10 Hypercholesterolemia E78.00 Prediabetes R73.03 Obesity E66.9 Sleep apnea G47.30 Vitamin D deficiency E55.9
[2023-01-10] MEDS: CHOLECALCIFEROL 1,000 UNITS 25 MCG TAB PO SCH (20:11)
[2023-01-10] MEDS: SENNA 8.6 MG TAB PO SCH (20:11)
[2023-01-10] MEDS ORDERED: LOSARTAN POTASSIUM 50 MG TAB PO SCH (21:00)
[2023-01-10] MEDS ORDERED: SIMVASTATIN 40 MG TAB PO SCH (21:00)
[2023-01-11] MEDS: oxyCODONE HCL IR 5 MG TAB (IMMEDIATE RELEASE) PO PRN ×2 (04:07→08:17)
[2023-01-11] MEDS: ACETAMINOPHEN 500 MG TAB PO SCH (06:00)
[2023-01-11 06:32] LABS: Basophils # (auto) 0.04 K/uL (0-0.2); Basophils % (auto) 0.5 %; Eosinophils # (auto) 0.04 K/uL (0-0.50); Eosinophils % (auto) 0.5 %; Hematocrit (blood only) 38.8 % (37.0-47.0); Hemoglobin 12.9 g/dl (12.0-16.0); Immature Granulocytes # (auto) 0.04 K/uL (0.01-0.20); Immature Granulocytes % (auto) 0.5 %; Lymphocytes # (auto) 3.01 K/uL (1.2-3.4); Lymphocytes % (auto) 39.4 %; Mean Corpuscular Hemoglobin 29.7 pg (25.0-34.0); Mean Corpuscular Hgb Conc 33.2 g/dL (32.0-36.0); Mean Corpuscular Volume 89.4 fL (80.0-100.0); Mean Platelet Volume 11.3 fL (9.4-12.4); Monocytes # (auto) 0.71 K/uL (0.11-0.59); Monocytes % (auto) 9.3 %; Neutrophils # (auto) 3.79 K/uL (1.40-6.50); Neutrophils % (auto) 49.8 %; Platelet Count 199 K/uL (130-400); RDW Coefficient of Variation 13.1 % (11.5-14.5); RDW Standard Deviation 42.8 fL (36.4-46.3); Red Blood Count 4.34 M/uL (4.20-5.40); White Blood Count 7.63 K/ul (4.8-10.8)
[2023-01-11 07:01] LABS: BUN Creatinine Ratio 29.3 (10-20); Calcium 8.9 mg/dl (8.5-10.1); Creatinine Clr Calc Pharmacy 95.8 ml/min; Est GFR (African American) 92.9 ml/min; Est GFR (Non-African American) 80.2 ml/min; Potassium 4.1 mmol/L (3.5-5.1)
[2023-01-11] MEDS: RIVAROXABAN 10 MG TABLET PO SCH (07:54)
[2023-01-11] MEDS: MULTIVITAMIN TAB PO SCH (07:54)
[2023-01-11] MEDS: DOCUSATE SODIUM 100 MG CAP PO SCH (07:54)
--- NOTE | 2023-01-11 10:15 | Orthopedic Progress Note ---
Date of Service January 11, 2023 Assessment & Plan (1) Primary osteoarthritis of right knee: Plan: Postop day #2 right total knee arthroplasty. -PT/OT -Pain management as written -D/C Hemovac today -DVT ppx: SCDs, teds, Xarelto 10 mg daily -Discharge planning: Plan on discharge home with outpatient therapy. Plan is to D/C toay. Admission and Anticipated Discharge Date Admission Date: January 09, 2023 Subjective Patient is POD2 from right total knee. She is doing well this morning an has no acute complaints. Pain currently well controlled on current pain regime. Denies chest pain, shortness of breath, nausea/vomiting/diarrhea, headaches or dizziness. Review of Systems Constitutional: no fever, no chills, no sweats and no body aches Respiratory: no cough, no dyspnea and no problem reported Cardiovascular: no chest pain, no dyspnea and no syncope Gastrointestinal: no abdominal pain, no heartburn, no nausea and no vomiting Physical Exam Physical Exam: Right knee with dressing in place. Dressing is clean, dry, intact. Hemovac in place with minimal drainage. Compartments are soft and there is no calf tenderness. Patient able to extend her knee. Able to dorsiflex Distal perfusion and sensation grossly intact. Constitutional: WD/WN, vitals as above well developed, cooperative and comfortable; no acute distress Respiratory: normal respiratory effort, lungs clear to auscultation Cardiovascular: RRR, no murmur, no edema Results & Data ([facility]) Vital Signs (Past 12 Hours) Vital Signs Temp Pulse Resp BP Pulse Ox O2 Del Method 01/11/23 08:00 36.5 C 50 L 18 120/64 97 Room Air Laboratory Results Laboratory Results WBC 7.63 K/ul (4.8-10.8) 01/11/23 05:23 RBC 4.34 M/uL (4.20-5.40) 01/11/23 05:23 Hgb 12.9 g/dl (12.0-16.0) 01/11/23 05:23 Hct 38.8 % (37.0-47.0) 01/11/23 05:23 MCV 89.4 fL (80.0-100.0) 01/11/23 05:23 MCH 29.7 pg (25.0-34.0) 01/11/23 05:23 MCHC 33.2 g/dL (32.0-36.0) 01/11/23 05: RDW Std Deviation 42.8 fL (36.4-46.3) 01/11/23 05: RDW Coeff of Jonel 13.1 % (11.5-14.5) 01/11/23 05:23 Plt Count 199 K/uL (130-400) 01/11/23 05:23 MPV 11.3 fL (9.4-12.4) 01/11/23 05:23 Immature Gran % (Auto) 0.5 % 01/11/23 05:23 Neut % (Auto) 49.8 % 01/11/23 05:23 Lymph % (Auto) 39.4 % 01/11/23 05:23 Saline % (Auto) 9.3 % 01/11/23 05:23 Eos % (Auto) 0.5 % 01/11/23 05:23 Baso % (Auto) 0.5 % 01/11/23 05:23 Neut # (Auto) 3.79 K/uL (1.40-6.50) 01/11/23 05:23 Lymph # (Auto) 3.01 K/uL (1.2-3.4) 01/11/23 05:23 Saline # (Auto) 0.71 K/uL (0.11-0.59) H 01/11/23 05:23 Eos # (Auto) 0.04 K/uL (0-0.50) 01/11/23 05:23 Baso # (Auto) 0.04 K/uL (0-0.2) 01/11/23 05:23 Immature Gran # (Auto) 0.04 K/uL (0.01-0.20) 01/11/23 05:23 Sodium 139 mmol/L (136-145) 01/11/23 05:23 Potassium 4.1 mmol/L (3.5-5.1) 01/11/23 05:23 Chloride 107 mmol/L (98-107) 01/11/23 05:23 Carbon Dioxide 29 mmol/L (21-32) 01/11/23 05:23 Anion Gap 3 (3-11) 01/11/23 05:23 BUN 22 mg/dl (6-23) 01/11/23 05:23 Creatinine 0.75 mg/dl (0.6-1.2) 01/11/23 05:23 Est Cr Clr Drug Dosing 95.8 ml/min 01/11/23 05:23 Est GFR ( Amer) 92.9 ml/min 01/11/23 05:23 Est GFR (Non-Af Amer) 80.2 ml/min 01/11/23 05:23 BUN/Creatinine Ratio 29.3 (10-20) H 01/11/23 05:23 Glucose 104 mg/dl (70-99(Fasting)) H 01/11/23 05:23 Calcium 8.9 mg/dl (8.5-10.1) 01/11/23 05:23 SARS-CoV-2, RNA, NAAT NEGATIVE (NEGATIVE) 01/09/23 05:23 Impressions Knee X-Ray 01/09/23 09:52 XR knee RT 1 or 2V routine CLINICAL HISTORY: Surgical Post Op TECHNIQUE: 2 views of the right knee were obtained. Comparison: Comparison is made to right femur radiograph 04/22/2015 FINDINGS: Patient is status post total knee arthroplasty with expected postsurgical changes including soft tissue swelling and subcutaneous emphysema. No periarticular lucency or hardware fracture is seen. IMPRESSION: Expected postoperative appearance status post placement of total knee arthroplasty.
--- NOTE | 2023-01-11 14:15 | Discharge Summary ---
Date of Service January 11, 2023 Admission HPI Per Admitting Provider 72 yo female with PMHx significant for HTN, high cholesterol, morbid obesity, FABIANA, previous left TKA who presents with ongoing right knee pain. Pain interfering with her daily activities. She has failed conservative measures. she would like to proceed with knee replacement. Patient denies headaches, sweats, fevers, chills, double vision, blurred vision, cough, sore throat, dysphagia, chest pain, sob, wheezing, n/v/d/c, numbness, tingling, fatigue, urinary symptoms, mood disorders. ROS positive for right knee pain and stiffness. Admission Exam Per Admitting Provider Constitutional: well developed and well nourished; no acute distress Eyes: PERRL, conjunctivae normal, anicteric sclerae ENMT: external ear and nose normal, oropharynx normal Neck: trachea midline, no thyromegaly Respiratory: normal respiratory effort, lungs clear to auscultation Cardiovascular: RRR, no murmur, no edema Musculoskeletal: Right knee: Varus alignment. Tenderness medial joint line. Stable to valgus and varus stress. ROM 0-115 degrees Skin: no rashes, warm and dry Neurologic: patellar DTR's 2+ bilat, sensation intact Psychiatric: A+Ox3, euthymic affect Principal Diagnosis Right knee osteoarthritis Discharge Exam Physical Exam: Right knee with dressing in place. Dressing is clean, dry, intact. Hemovac in place with minimal drainage. Compartments are soft and there is no calf tenderness. Patient able to extend her knee. Able to dorsiflex Distal perfusion and sensation grossly intact. Constitutional: WD/WN, vitals as above well developed, cooperative and comfortable; no acute distress Respiratory: normal respiratory effort, lungs clear to auscultation Cardiovascular: RRR, no murmur, no edema Discharge Data Allergies Allergy/AdvReac Type Severity Reaction Status Date / Time No Known Allergies Allergy Unknown Verified 01/09/23 05:33 Consultations 01/04/23 13:56 Consult Hospitalist Routine Procedures Performed Operation Date: 01/09/23 07:15 Actual Procedures p Right Total Knee Arthroplasty(Right) - Joseph Degroot MD Ordered Studies 01/09/23 05:00 US - OR guided needle placemen Routine Hospital Course (1) Primary osteoarthritis of right knee: Postop day #2 right total knee arthroplasty. -PT/OT -Pain management as written -D/C Hemovac today -DVT ppx: SCDs, teds, Xarelto 10 mg daily -Discharge planning: Plan on discharge home with outpatient therapy. Plan is to D/C today. Postop day #1 right total knee arthroplasty. -PT/OT -Pain management as written -AM labs: Hemoglobin 13.7 from 17 preop. Acute blood loss anemia due to surgical loss and dilutional. -DVT prophylaxis: SCDs, teds, Xarelto 10 mg daily -Discharge planning: Plan on discharge home with outpatient therapy. Possible discharge home today depending on how therapy goes and her Hemovac output. If not, likely discharge tomorrow. Lab Results 01/09/23 01/10/23 01/10/23 Range/Units 05:23 05:28 05:28 WBC 10.23 (4.8-10.8) K/ul RBC 4.58 (4.20-5.40) M/uL Hgb 13.7 (12.0-16.0) g/dl Hct 41.3 (37.0-47.0) % MCV 90.2 (80.0-100.0) fL MCH 29.9 (25.0-34.0) pg MCHC 33.2 (32.0-36.0) g/dL RDW Std Deviation 42.1 (36.4-46.3) fL RDW Coeff of Jonel 12.7 (11.5-14.5) % Plt Count 214 (130-400) K/uL MPV 11.3 (9.4-12.4) fL Immature Gran % (Auto) % Neut % (Auto) % Lymph % (Auto) % Blackford % (Auto) % Eos % (Auto) % Baso % (Auto) % Neut # (Auto) (1.40-6.50) K/uL Lymph # (Auto) (1.2-3.4) K/uL Blackford # (Auto) (0.11-0.59) K/uL Eos # (Auto) (0-0.50) K/uL Baso # (Auto) (0-0.2) K/uL Immature Gran # (Auto) (0.01-0.20) K/uL Sodium 139 (136-145) mmol/L Potassium TNP Chloride 109 H (98-107) mmol/L Carbon Dioxide 26 (21-32) mmol/L Anion Gap 4 (3-11) BUN 21 (6-23) mg/dl Creatinine 0.77 (0.6-1.2) mg/dl Est Cr Clr Drug Dosing 93.3 ml/min Est GFR ( Amer) 90.0 ml/min Est GFR (Non-Af Amer) 77.7 ml/min BUN/Creatinine Ratio 27.3 H (10-20) Glucose 148 H (70-99(Fasting)) mg/dl Calcium 8.8 (8.5-10.1) mg/dl SARS-CoV-2, RNA, NAAT NEGATIVE (NEGATIVE) 01/10/23 01/11/23 01/11/23 Range/Units 07:17 05:23 05:23 WBC 7.63 (4.8-10.8) K/ul RBC 4.34 (4.20-5.40) M/uL Hgb 12.9 (12.0-16.0) g/dl Hct 38.8 (37.0-47.0) % MCV 89.4 (80.0-100.0) fL MCH 29.7 (25.0-34.0) pg MCHC 33.2 (32.0-36.0) g/dL RDW Std Deviation 42.8 (36.4-46.3) fL RDW Coeff of Jonel 13.1 (11.5-14.5) % Plt Count 199 (130-400) K/uL MPV 11.3 (9.4-12.4) fL Immature Gran % (Auto) 0.5 % Neut % (Auto) 49.8 % Lymph % (Auto) 39.4 % Blackford % (Auto) 9.3 % Eos % (Auto) 0.5 % Baso % (Auto) 0.5 % Neut # (Auto) 3.79 (1.40-6.50) K/uL Lymph # (Auto) 3.01 (1.2-3.4) K/uL Blackford # (Auto) 0.71 H (0.11-0.59) K/uL Eos # (Auto) 0.04 (0-0.50) K/uL Baso # (Auto) 0.04 (0-0.2) K/uL Immature Gran # (Auto) 0.04 (0.01-0.20) K/uL Sodium 139 (136-145) mmol/L Potassium 4.4 4.1 Chloride 107 (98-107) mmol/L Carbon Dioxide 29 (21-32) mmol/L Anion Gap 3 (3-11) BUN 22 (6-23) mg/dl Creatinine 0.75 (0.6-1.2) mg/dl Est Cr Clr Drug Dosing 95.8 ml/min Est GFR ( Amer) 92.9 ml/min Est GFR (Non-Af Amer) 80.2 ml/min BUN/Creatinine Ratio 29.3 H (10-20) Glucose 104 H (70-99(Fasting)) mg/dl Calcium 8.9 (8.5-10.1) mg/dl SARS-CoV-2, RNA, NAAT (NEGATIVE) Total Time Total Time Spent Total Time Spent (In Minutes): 20 Discharge Plan Discharge Items Patient Disposition: Home - Self-Care Reason For Visit: Osteoarthritis Right Knee Discharge Diagnosis: Right Knee Osteoarthritis Activity: Per Instructions section Weightbearing: Right weightbearing Non-emergency contact: Surgeon Call non-emergency contact if: you have any medication questions, your pain is not controlled, your pain is concerning for you, you have a fever, your temperature is above 101, your wound has increased redness and your wound has increased drainage Follow-up/Referrals: Len Biggs MD [Primary Care Provider] - 01/23/23 10:00 am (APPOINTMENT WITH KATLIN CARDOZO) Joseph Degroot MD [Surgeon] - (Follow up with Dr Degroot or his PA in 2 weeks from the day of your surgery for your first post operative visit.) Diet: Regular Addtl Attending Provider Instructions: ACTIVITY RECOMMENDATIONS: SELF CARE INSTRUCTIONS AFTER TOTAL KNEE REPLACEMENT A. You may need to continue a physical therapy program after discharge from the hospital. There are several options available to you. Your doctor will assist you in selecting the best one for you. 1. An out-patient facility 2 to 3 times a week for therapy or home therapy. 2. Continue working on all exercises taught to you in the hospital. Your goals should be to increase bending of your knee to 90 degrees and beyond and to fully straighten your knee. B. You may progress at your own pace from walking with a walker or crutches to a cane; then to no assistive devices. C. Make walking a part of your daily routine. Be up as much as comfortable with rest periods throughout the day. Rest with leg elevation is very important. Use the ice wrap frequently for the first 3-4 weeks. D. There are no restrictions on activities. You may ride in a car, shop, parti cipate in chemistry lecturer and all social activities. E. Wear the long elastic stockings (RONALD hose) 20 hours a day for 2 weeks after surgery. They can be removed several times a day for laundering and for a bath. F. You may shower, no tub baths until cleared by your doctor. SPECIAL CARE INSTRUCTIONS: VERY IMPORTANT TO READ AND REVIEW A. There are a few signs you need to watch for after you are home. Call [facility] if you notice any of the followin. Increased severe knee pain. Some pain is expected especially when you exercise. 2. Increased swelling in your leg or knee; pain or swelling of the calf muscle in either lower leg. 3. Any fluid drainage from the incision. 4. Shortness of breath or chest pain. B. Please call [facility] at if you have any concerns or questions about your operation or recovery. The doctor or his nurse will return your call promptly. C. You must take antibiotics before dental work, bladder, bowel or other surgery. Your doctor will provide you with a permanent care to carry describing th is precaution. IMPORTANT: * REMEMBER TO TAKE XARELTO 10MG ORALLY DAILY FOR 4 WEEKS UNLESS OTHERWISE DIRECTED. THIS IS YOUR BLOOD THINNER. * CALL IF INCREASED PAIN, REDNESS, DRAINAGE OR FEVER GREATER THAT 101. * WEAR RONALD HOSE 20 HOURS PER DAY FOR 2 WEEKS. * KYLE Dressing - This is a large suction dressing covering your incision. This will help pull any excess drainage from the wound and allow your incision to heal properly. You may shower with this if you can keep the unit outside of the shower. If any bleeding or leakage is noted please call your doctor's office. This will remain on your incision for 7 days and then should be removed. This can be done yourself or by the home nursing staff if applicable. The entire unit is disposable once removed. Once removed, keep incision clean and dry. If redness or drainage is noted, please call your surgeon. . FOLLOW UP VISIT: If appointment is not already scheduled: Please call [facility] to make a follow-up appointment for 2 weeks after your surgery at . Pending Studies at Discharge: No Stand-Alone Forms: [facility], Smoking Cessation Medications and DC Order Prescriptions: New Xarelto 10 mg Tablet 10 mg PO DAILY Qty: 30 0RF acetaminophen [Tylenol Extra Strength] 500 mg Tablet 1,000 mg PO Q8 Qty: 60 0RF oxycodone 5 mg Tablet 5 - 10 mg PO .Q4h-6h MDD 6 PRN (Reason: pain) Qty: 30 0RF Rx Instructions: Ongoing therapy, Dr. Degroot supervising Continued gabapentin 100 mg capsule See Rx Instructions PO DAILY PRN (Reason: neuropathy) Qty: 60 2RF Patient Comments: PT STATES NOT TAKING NOW Rx Instructions: Take 1 - 2 capsules at bedtime orally daily PRN; simvastatin 40 mg tablet 40 mg PO HS Qty: 90 3RF cholecalciferol (vitamin D3) 2,000 unit capsule 2,000 units PO HS losartan 50 mg tablet 50 mg PO HS Discharge Orders: Discharge Order (Routine); Ordered 01/11/23 Ordered By: Katty Coffey Admission Data Admit Date/Time: 01/09/23 09:52 Attending Provider: Joseph Degroot Admit Provider: Joseph Degroot Primary Care Provider: Len Biggs Other Providers: Grey Mclean Natalie B. Other Interventions: Discharge Summary Assessment (RN) Last Done: 01/11/23 10:36
== END 2023-01-11 11:44 | disposition home or self-care (01) ==
LOC: ASU 05:12 → 3E 05:12